=== PATIENT | female | born 1990 | race Caucasian/White ===

== ENCOUNTER 2018-02-07 10:26 | Emergency (ER) | payer MEDICAID, SELFPAY ==
[2018-02-07 10:27] VITALS: BP 160/96; PULSE 77; RESP 16; TEMP 36.9; O2SAT 100; BMI 48.2
--- NOTE | 2018-02-07 10:45 | ED.VISSUMM ---
- ER Visit Summary Date of Service: 02/07/18 Chief Complaint: Abdominal pain History of Present Illness: The patient is a 28 F who states that yesterday she began to have a left upper quadrant left flank pain. Continuous and described as aching. Mild to moderate nature. It has been continuous. She notes urinary frequency but states that is chronic for her. She states that she felt the similar pain when she had a kidney infection when she was . She notes normal bowel movements. Last bowel movement last night. No trauma to the abdomen. No strenuous activity. No fevers. No problems eating. Physical Examination: Afebrile vital signs are stable Gen: Well-nourished well-developed morbidly obese Head: Normocephalic atraumatic Eyes: Perrl EOMI ENT: TMs clear no rhinorrhea moist mucous membranes Neck: Supple no lymphadenopathy no JVD nontender CVS: Regular rate rhythm no murmurs normal S1-S2 Respiratory: No distress clear to auscultation bilaterally chest nontender Abdomen: Soft nontender nondistended normal bowel sounds no masses body habitus precludes me from palpating deeply into the abdomen Back: Nontender Extremity: Nontender no edema Skin: Normal color no rash Neuro: alert orientated ?3 CN II-XII intact normal strength sensation reflexes gait cerebellar Psych: Normal affect normal mood Test Results: Urinalysis and test were obtained. CT abdomen pelvis demonstrates some mild splenomegaly. Otherwise no obvious cause to explain her left upper quadrant pain. Emergency Department Course and Treatment: Patient will be discharged home with supportive care return if worsening follow-up if not improved in 24-48 hours Impression: 1. Left upper quadrant abdominal pain This note was generated with [employer] dictation software. It may contain incorrect words, spelling, and punctuation that were not noted in review of the chart prior to signing ED Disposition - Plan for ED Patient: Disposition: Home or Assisted Living Chief Complaint: Abd Pain Instructions: ED Flank Pain Uncertain Cause Referrals: Cesia Wallis PA [Primary Care Provider] - 1-2 Days if not improving
[2018-02-07 10:56] LABS: Mucous, Urine 0 SEEN /hpf (<or=2+); Red Blood Cells-Urine 0 SEEN /hpf (0-5); White Blood Cells 0 SEEN /hpf (0-5)
[2018-02-07 10:57] LABS: Color, Urine Yellow (Yellow); Glucose, Dipstick Normal (Normal); Ketone-Dipstick Negative (Negative); Leukocyte Esterase-Dipstick Negative /ul (Negative); Nitrite-Dipstick Negative (Negative); Occult Blood-Urine Negative /ul (Negative); Protein-Dipstick Negative (Negative); Specific Gravity, Urine 1.015 (1.002-1.030); Urine Bilirubin Dipstick Negative (Negative); Urine Clarity Clear (Clear); Urine Urobilinogen Normal (Normal)
[2018-02-07 10:58] LABS: Internal QC Validated? YES +Cl - CLEAR BKGD
[2018-02-07 10:59] LABS: Pregnancy, Urine Negative Negative
[2018-02-07 11:03] LABS: Bacteria RARE /hpf (None Seen); Squamous Epithelial Cells - UA 0-5 SEEN /hpf (5-10)
--- NOTE | 2018-02-07 11:17 | CT_ITS ---
STUDY: CT ABDOMEN AND PELVIS WITHOUT CONTRAST REASON FOR EXAM: Female, 28 years old. Left flank/upper quadrant pain. RADIATION DOSAGE (If Supplied By Facility): CTDIvol = ( 23.15 ) mGy, DLP = ( 1214.82 ) mGycm TECHNIQUE: Transaxial images were obtained from the dome of the diaphragm to the symphysis pubis without oral contrast, and without intravenous contrast. Sagittal and coronal images were reconstructed. Individualized dose optimization techniques were used for this CT. COMPARISON: None. FINDINGS: The visualized lung bases are unremarkable. The visualized portions of the heart are within normal limits. There is decreased attenuation of the liver consistent with steatosis. Minor relative hyperdensity along the gallbladder fossa consistent with sparing in the bare area of the liver. There is hepatomegaly, the right lobe measuring 22.5 cm in height. The portal vein diameter is approximately 14.5 mm. Normal gallbladder and extrahepatic biliary system. There is mild splenomegaly, measuring 14.55 x 11.3 x 4.45 cm. Normal pancreas. Normal bilateral adrenal glands. Normal right kidney. Normal left kidney. No hydronephrosis. Normal visualized stomach. Normal small intestine. Normal colon. The appendix is visualized and appears normal. Normal abdominal aorta. Normal inferior vena cava. Normal retroperitoneum. Normal urinary bladder. There is a T-shaped intrauterine device in the endometrial cavity of the normal size, anteverted uterus Normal visualized adnexa. Normal abdominal wall. Normal osseous structures. CT/Abdomen/Pelvis without Cont IMPRESSION: 1. Hepatomegaly with steatosis. 2. Mild splenomegaly. 3. The bowel is unremarkable without signs of obstruction. The appendix is normal. 4. No hydronephrosis. 5. T-shaped IUD in the endometrial cavity of the normal-appearing uterus. Unremarkable adnexa. Electronically Signed: Antolin Rubio MD at 11:48 EDT , Service support ,
[2018-02-07 12:34] VITALS: BP 145/70; PULSE 75; RESP 14; O2SAT 99
== END 2018-02-07 12:35 | disposition home or self-care (01) ==
PROVIDERS: Emergency Provider Emergency Medicine; Family Provider Physician Assistant; PCP Physician Assistant
DX: R10.12 Left upper quadrant pain (principal); R35.0 Frequency of micturition; E66.01 Morbid (severe) obesity due to excess calories; R16.1 Splenomegaly, not elsewhere classified; Z87.448 Personal history of other diseases of urinary system
CPT/HCPCS: 74176; 81001; 81025; 99282

== ENCOUNTER → 2018-04-09 10:34 | Outpatient (CLI) | payer MEDICAID, SELFPAY ==
--- NOTE | 2018-04-09 10:36 | RAD_ITS ---
STUDY: X-RAY - RIGHT HAND REASON FOR EXAM: Bilateral hand pain and numbness. TECHNIQUE: 3 view(s) of the hand. COMPARISON: None. FINDINGS: Normal radiocarpal articulation. Normal distal radioulnar joint. Normal visualized carpal bones. Normal carpal articulations Normal carpometacarpal articulation of the thumb. Normal second through fifth carpometacarpal joints. There is mild deformity of the fifth metacarpal diaphysis suggestive of remote fracture. Normal metacarpophalangeal joint of the thumb. Normal interphalangeal joint of the thumb. Normal proximal and distal phalanges of the thumb. Normal metacarpophalangeal joints of the second through fifth fingers. Normal proximal and distal interphalangeal joints of the second through fifth fingers. Normal phalanges of the second through fifth fingers. The soft tissue structures are unremarkable. RAD/Hand Min 3 Views IMPRESSION: Mild deformity of the fifth metacarpal suggestive of remote fracture. Otherwise, unremarkable x-ray examination of the right hand. Electronically Signed: Prasanna Lambert MD at 9:45 EDT Tel , Service support ,
--- NOTE | 2018-04-09 10:36 | RAD_ITS ---
STUDY: X-RAY - LEFT HAND REASON FOR EXAM: Bilateral hand pain and numbness. TECHNIQUE: 3 view(s) of the hand. COMPARISON: None. FINDINGS: Normal radiocarpal articulation. Normal distal radioulnar joint. Normal visualized carpal bones. Normal carpal articulations Normal carpometacarpal articulation of the thumb. Normal second through fifth carpometacarpal joints. Normal metacarpi. Normal metacarpophalangeal joint of the thumb. Normal interphalangeal joint of the thumb. Normal proximal and distal phalanges of the thumb. Normal metacarpophalangeal joints of the second through fifth fingers. Normal proximal and distal interphalangeal joints of the second through fifth fingers. Normal phalanges of the second through fifth fingers. The soft tissue structures are unremarkable. RAD/Hand Min 3 Views IMPRESSION: Normal x-ray examination of the left hand. Electronically Signed: Prasanna Lambert MD at 14:14 EDT Tel , Service support ,
== END ==
PROVIDERS: Family Provider Physician Assistant; PCP Physician Assistant; Visit Provider Orthopaedic Surgery
DX: M79.641 Pain in right hand (principal); M79.642 Pain in left hand
CPT/HCPCS: 73130

== ENCOUNTER → 2018-07-23 12:14 | Outpatient (CLI) | payer MEDICAID, SELFPAY | PROVIDERS: Family Provider Physician Assistant; PCP Physician Assistant; Visit Provider Obstetrics & Gynecology | DX: Z30.431 Encounter for routine checking of intrauterine contraceptive device (principal) | CPT/HCPCS: 76830; 76856; 93976 ==

== ENCOUNTER 2018-08-01 12:35 | Emergency (ER) | payer MEDICAID, SELFPAY ==
[2018-08-01 12:36] VITALS: BP 161/100; PULSE 74; RESP 18; TEMP 36.4; O2SAT 100; BMI 42.9
[2018-08-01 12:45] VITALS: BP 146/92; RESP 16
--- NOTE | 2018-08-01 13:16 | ED.DCSUM_ITS ---
- ER Visit Summary Date of Service: 08/01/18 Chief Complaint: [] Intermittent left foot pain plantar service for weeks History of Present Illness: The patient is a 28 F [] complains of the above for weeks it is very intermittent nothing triggers it she indicates she began walking of the day and again had recurrence of this pain decide come and have it evaluated. 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 she does not recall any direct injury she has no history of any arthritis problems orthopedic problems and she denies any past history she has been using [id number] meds the pain is intermittent worse when she bears weight Physical Examination: [] Her BMI is 43 she is resting cupping the bed her general medical exam head neck chest abdomen unremarkable the left foot there is normal ankle function with no abnormality or pain she has a nonspecific pain to the plantar surface of her foot that really is hard to localize there is no instability deformity no skin breakdown or signs of infection or trauma strong dorsalis pedis pulse normal sensation cap refill to the toes and the skin is intact and there is no signs of infection or obvious trauma Test Results: [] Emergency Department Course and Treatment: [] X-rays are obtained that are unremarkable per radiology see those reports, explained all the above that her including the concept of an occult injury she has soft flat supportive shoes she can wear she will refer to podiatry continue to take [id number]-[id number] meds for pain try to avoid being on the latter and return for change in symptoms Treatment Plan: [] Disposition: [] Home stable Impression: [] Acute recurrent intermittent left foot pain etiology unclear This note was generated with [employer] dictation software. It may contain incorrect words, spelling, and punctuation that were not noted in review of the chart prior to signing ED Disposition - Plan for ED Patient: Chief Complaint: Lower Extremity Injury Referrals: Cesia Wallis PA [Primary Care Provider] -
--- NOTE | 2018-08-01 14:32 | ED.DEP ---
ED Disposition - Plan for ED Patient: Chief Complaint: Lower Extremity Injury Referrals: Cesia Wallis PA [Primary Care Provider] - Gabriela Loyola DPM [STAFF PHYSICIAN] -
--- NOTE | 2018-08-01 14:33 | ED.DEP ---
ED Disposition - Plan for ED Patient: Chief Complaint: Lower Extremity Injury Instructions: ED Contusion Foot, ED Sprain Foot Referrals: Gabriela Loyola DPM [STAFF PHYSICIAN] - Cesia Wallis PA [Primary Care Provider] -
[2018-08-01 14:46] VITALS: RESP 16
--- NOTE | 2018-08-01 14:46 | ED.RN ---
REVIEWED D/C INSTRUCTIONS, FOLLOW UP CARE, AND S/S THAT WOULD WARRANT A RETURN TO THE ED WITH PT. PT VERBALIZED AN UNDERSTANDING AND DENIES FURTHER QUESTIONS FOR THIS RN. PT SKIN P/W/D, RESP EVEN AND UNLABORED, PT A&O X 3, NO DISTRESS NOTED. PT AMBULATED OUT OF ED, GAIT STEADY.
== END 2018-08-01 14:47 | disposition home or self-care (01) ==
PROVIDERS: Emergency Provider Emergency Medicine; Family Provider Physician Assistant; PCP Physician Assistant
DX: M25.572 Pain in left ankle and joints of left foot (principal)
CPT/HCPCS: 73630; 99282

== ENCOUNTER → 2019-07-08 | Outpatient (CLI) | payer MEDICAID, SELFPAY ==
[2019-07-08 15:39] LABS: Absolute Neutrophil Count 4.3 X10^3/uL (2.0-7.7); Basophil# 0.06 X10^3/uL; Basophil% 0.9 % (0-1); Eosinophil# 0.14 X10^3/uL; Eosinophils% 2.2 % (0-5); Hematocrit 32.5 % (37-47); Hemoglobin 9.4 g/dL (12.0-15.0); Lymphocyte % 23.1 % (19-41); Mean Corp Hgb Conc 28.9 g/dL (32-36); Mean Corpuscular Hgb 20.9 pg (27.0-32.0); Mean Corpuscular Volume 72.4 fL (81-99); Mean Platelet Vol. 9.4 fl (6.2-12.0); Monocyte# 0.44 X10^3/uL; Monocyte% 6.8 % (0-10); NRBC Flagged by Analyzer 0 % (0-5); Neutrophil # 4.32 X10^3/uL (2.7-7.7); Neutrophil % 66.7 % (47-70); Platelet Count 346 K/mm3 (150-450); RBC Distribution Width CV 16.4 % (11.6-14.6); RBC Distribution Width SD 41.9 fl (35.1-43.9); Red Blood Count 4.49 M/mm3 (4.2-5.4); White Blood Count 6.5 K/mm3 (4.4-11.0)
== END | disposition home or self-care (01) ==
LOC: LAB.FUTURE 15:01
PROVIDERS: Family Provider Physician Assistant; PCP Physician Assistant; Referring Provider Physician Assistant; Visit Provider Physician Assistant
DX: D64.9 Anemia, unspecified (principal)
CPT/HCPCS: 36415; 85025

== ENCOUNTER 2019-10-23 21:54 | Emergency (ER) | payer MEDICAID, SELFPAY ==
[2019-10-23 21:54] VITALS: BP 149/119; PULSE 69; RESP 15; TEMP 36.2; O2SAT 98; BMI 41.1
[2019-10-23] MEDS: Clindamycin HCl 150 MG Capsule 300 MG PO (22:14)
--- NOTE | 2019-10-23 22:15 | ED.VIS.DENTA ---
History of Present Illness Chief Complaint: Dental Informant: Patient Onset: Days - 5 Context: Gradual Onset Timing: Continuous Quality: sore Location: left mandib dental extraction sites Current Severity: Moderate Maximum Severity: Moderate Worsened by: eating Relieved by: NSAIDs Associated Symptoms: - - no fever, swelling in jaw/face Narrative: Patient had several teeth extracted both mandibular rows at the beginning of the week, the right side has been improving in the left side has been getting worse with regards to pain. She was going to try to wait until Friday to talk to her dentist but since it is the weekend she came to the ER out of concern for infection. She denies any fevers or systemic symptoms. No discharge or major bleeding. Past Medical History - Allergies and Home Meds Allergies/Adverse Reactions: Allergies Penicillins Allergy (Verified 10/23/19 21:59) Hives Primary Care Physician: Cesia Wallis PA [Primary Care Provider] - Past Medical History: None Lives: With Family Smoking Status: Never smoker Review of Systems General: Denies: Chills, Fever, Sweats ENT: Reports: - - dental pain. Denies: Bilateral ear pain, Rhinorrhea, Sore throat Respiratory: Denies: Dyspnea, Cough Gastrointestinal: Denies: Nausea, Vomiting Physical Exam Vital Signs/Narrative: Vital Signs Temp Pulse Resp BP Pulse Ox 10/23/19 21:54 97.1 F L 69 15 149/119 H 98 Inital Vital Signs reviewed: Yes General: Well nourished, Well developed, - - well-appearing, nad Head: Normocephalic, Atraumatic ENT: Moist mucous membranes, No rhinorrhea Mouth/Throat: - - Right mandibular extraction sites appear benign and nontender with clots in place at extraction site. Left mandibular gingival extraction sites are a little swollen, there is some blood within the clot of the extraction site, it does not necessarily appear like a dry socket, but there is significant tenderness there. No purulent discharge. No abscess. No sublingual edema. No trismus. Neck: Supple, No lymphadenopathy, Nontender, No JVD Neurological: Alert, Oriented x3, Cranial nerves II-XII grossly intact, Normal Strength, Normal Sensation, Normal Gait Psychological: Normal affect, Normal Mood Diagnostic/Tx/Re-eval - Medical Decision Making Infection probably present and early. Allergic to penicillins and started on clindamycin. Advised to follow-up with her dentist as soon as possible. She is comfortable with that plan. ED Disposition - Plan for ED Patient: Disposition: Home or Assisted Living Diagnosis: Dental infection Instructions: Dental Pain Prescriptions: Clindamycin [Cleocin] 300 mg PO 4X/DAY #80 cap Transmission Status: Pending to [facility] [facility] Referrals: Dentist,Your [STAFF PHYSICIAN] - 2 Days
== END 2019-10-23 22:21 | disposition home or self-care (01) ==
LOC: ED 22:20
PROVIDERS: Emergency Provider Emergency Medicine; Family Provider Physician Assistant; PCP Physician Assistant
DX: T81.40XA Infection following a procedure, unspecified, initial encounter (principal)
CPT/HCPCS: 99283

== ENCOUNTER 2020-01-11 16:47 | Emergency (ER) | payer MEDICAID, SELFPAY ==
[2020-01-11 16:49] VITALS: BP 139/103; PULSE 104; RESP 18; TEMP 37.4; O2SAT 97; BMI 44.6
--- NOTE | 2020-01-11 17:03 | ED.VISSUMM ---
- ER Visit Summary Date of Service: 01/11/20 Chief Complaint: [Headache, cough, fever] History of Present Illness: The patient is a 30 F [presents to the emergency department with symptoms that started 3 days ago. Patient states that both her young girls were diagnosed with influenza B last week. Patient started feeling bad 3 days ago. Patient complained of a runny nose initially as well as a headache. She describes a sore throat and a dry cough. She complains of body aches. Patient had some diarrhea yesterday but that seems to have resolved. Patient otherwise has no medical history. She is been using Tylenol but not get much relief from her symptoms.] Physical Examination: [HEENT-PERRLA, EOMI. Cranial nerves II through XII grossly intact. TMs clear. Mucous membranes moist. No adenopathy. Cardiovascular-regular rate and rhythm without murmur or ectopy Lungs-clear to auscultation, chest wall stable without crepitus or subcu emphysema Abdomen-normoactive bowel sounds, soft, nontender, no rebound or rigidity, no peritoneal signs. Neuro nnmi-ydxpak-tnlh and heel wiggins testing within normal limits, negative Romberg, negative for drift, fundi benign. Extremities-intact ?4, normal range of motion, normal pulses, atraumatic] Test Results: [None indicated] Emergency Department Course and Treatment: [Patient was given Toradol 60 mg IM as well as Zofran 4 mg p.o.] Treatment Plan: [I suspect patient has influenza given her recent exposure to family members who both tested positive for influenza B last week. Symptoms consistent with influenza. She is out of the window for Tamiflu and she does not want the Tamiflu. Recommended symptomatic care. She is to follow-up with her primary care physician in 5 to 7 days. Patient advised to return if increasing shortness of breath or condition should worsen anyway.] Disposition: [Discharged home in stable condition] Impression: [Influenza] This note was generated with [employer] dictation software. It may contain incorrect words, spelling, and punctuation that were not noted in review of the chart prior to signing ED Disposition - Plan for ED Patient: Referrals: Cesia Wallis PA [Primary Care Provider] -
--- NOTE | 2020-01-11 17:05 | ED.DEP ---
ED Disposition - Plan for ED Patient: Instructions: INFLUENZA (Adult) Prescriptions: Ibuprofen [Motrin] 800 mg PO TID PRN PRN #20 tab PRN Reason: Fever Transmission Status: Pending to [facility] Ondansetron [Zofran Odt] 4 mg PO Q8H PRN PRN #10 tab PRN Reason: Nausea Transmission Status: Pending to [facility] Referrals: Cesia Wallis PA [Primary Care Provider] - 5-7 Days
[2020-01-11] MEDS: Ketorolac 60 MG/2 ML Vial IM (17:11)
[2020-01-11] MEDS: Ondansetron ODT 4 MG Tablet PO (17:11)
== END 2020-01-11 17:45 | disposition home or self-care (01) ==
LOC: ED 17:16
PROVIDERS: Emergency Provider Emergency Medicine; PCP Physician Assistant
DX: J10.1 Influenza due to other identified influenza virus with other respiratory manifestations (principal)
CPT/HCPCS: 96372; 99283

== ENCOUNTER → 2020-01-13 | Outpatient (CLI) | payer MEDICAID, SELFPAY ==
[2020-01-13 14:36] VITALS: BMI 44.6
== END | disposition home or self-care (01) ==
LOC: LABSPEC 16:15
PROVIDERS: PCP Physician Assistant; Referring Provider Nurse Practitioner Women's Health; Visit Provider Nurse Practitioner Women's Health
DX: R10.2 Pelvic and perineal pain (principal); N92.6 Irregular menstruation, unspecified
CPT/HCPCS: 87070; 87077; 87205

== ENCOUNTER 2020-04-05 16:59 | Emergency (ER) | payer MEDICAID, SELFPAY ==
[2020-01-18 12:47] VITALS: BMI 44.6
[2020-04-05 17:00] VITALS: BP 154/104; PULSE 78; RESP 16; TEMP 36.6; O2SAT 97; BMI 50.2
[2020-04-05 17:09] VITALS: BP 168/98
--- NOTE | 2020-04-05 17:09 | ED.DCSUM_ITS ---
History of Present Illness Chief Complaint: Vag Bleeding Informant: Patient Onset: Days - 3 days Narrative: Patient presents secondary to heavy vaginal bleeding. Her period started 3 days ago. She states is been heavier than normal and passing clots. For the past couple of days she states she is been going through 2 pads an hour. Bleeding is not quite as heavy today. She does have a history of anemia at baseline and called her GYNs office today who told her to come to the emergency room whenever she got off work today. Patient was seen in the office in December to discuss getting a tubal ligation. This is not been scheduled yet secondary to the Covid pandemic. Patient does have ParaGard IUD in place. Past Medical History - Allergies and Home Meds Allergies/Adverse Reactions: Allergies Penicillins Allergy (Verified 04/05/20 17:01) Almita Primary Care Physician: Cesia Wallis PA [Primary Care Provider] - Doctors: Dr. Forte Prior records reviewed: Yes Lives: Spouse/ Significant Other Smoking Status: Never smoker Review of Systems General: Denies: Chills, Fever Eyes: Denies: Visual changes - bilaterally ENT: Denies: Bilateral ear pain Cardiovascular: Denies: Chest pain Respiratory: Denies: Dyspnea, Cough Gastrointestinal: Reports: Abdominal pain. Denies: Nausea, Vomiting, Diarrhea Musculoskeletal: Reports: Back pain Skin: Denies: Rash Neurological: Denies: Headache Hematologic: Denies: Easy bruising, Easy bleeding Allergy: Denies: Uticaria Physical Exam Vital Signs/Narrative: Vital Signs Temp Pulse Resp BP Pulse Ox 04/05/20 17:09 168/98 H 04/05/20 17:00 97.9 F 78 16 154/104 H 97 Inital Vital Signs reviewed: Yes General: Well nourished, Well developed Head: Normocephalic ENT: Moist mucous membranes Neck: Supple Cardiovascular: Regular rate, Regular rhythm Respiratory: No distress, CTA bilaterally Abdomen: Soft, Nontender Extremities: Nontender Skin: Normal color Neurological: Alert, Oriented x3 Psychological: Normal affect Diagnostic/Tx/Re-eval Impressions Transvaginal US 04/05/20 17:09 IMPRESSION: Satisfactory position of the intrauterine device. Normal sonographic appearance of the uterus. Normal sonographic appearance of the bilateral ovaries. Trace free fluid. Electronically Signed: Otilio Augustin, at 18:21 EDT Tel , Service support , 04/05/20 17:09 Transvaginal Non- [US] Stat Laboratory Results 04/05/20 04/05/20 17:16 17:16 WBC 5.7 RBC 4.28 Hgb 13.3 Hct 40.2 MCV 93.9 MCH 31.1 MCHC 33.1 RDW Std Deviation 42.0 RDW Coeff of Pamela 12.2 Plt Count 249 MPV 9.1 Immature Gran % (Auto) 0.200 Neut % (Auto) 60.2 Lymph % (Auto) 30.1 Kidder % (Auto) 6.6 Eos % (Auto) 2.4 Baso % (Auto) 0.5 Absolute Neuts (auto) 3.4 Absolute Lymphs (auto) 1.72 Nucleated RBC % 0 Serum , Qual NEGATIVE - Medical Decision Making Patient was given liter IV fluid. Test results are discussed with her DECAL TRANSFERRER, Dr. Forte. Patient will be given estrogen 1 mg twice daily x5 days, then once daily x5 days. Patient is to be seen in the office in 2 weeks for follow-up. Patient is comfortable with this plan. ED Disposition - Plan for ED Patient: Disposition: Home or Assisted Living Diagnosis: Menorrhagia Instructions: ED Bleeding Menstrual Heavy Prescriptions: Estradiol 1 mg PO BID #15 tab Transmission Status: Pending to [facility] [facility] Referrals: Tami Forte MD [STAFF PHYSICIAN] - 1-2 Weeks
--- NOTE | 2020-04-05 17:09 | US_ITS ---
STUDY: ULTRASOUND OF THE FEMALE PELVIS - COMPLETE REASON FOR EXAM: Female, 30 years old. Bleeding. Intrauterine device. TECHNIQUE: Transvaginal TECHNICAL QUALITY: Adequate. COMPARISON: None. FINDINGS: The uterus is anteverted and is in a midline position. The uterus measures 8.2 x 3.6 x 5.2 cm. There are nabothian cysts noted in the cervix. The endometrium measures 3 mm in thickness, and is hyperechoic there is an intrauterine device in satisfactory position. There is no demonstrated endometrial mass. There is no demonstrated myometrial mass. The right ovary is visualized. The right ovary measures 3.2 x 2.3 x 1.3 cm. There is no right ovarian cyst or ovarian mass. There is no visualized right adnexal mass or complex lesion. There is normal arterial and normal venous vascularity. The left ovary is visualized. The left ovary measures 2.2 x 1.8 x 1.8 cm. There is no left ovarian cyst or ovarian mass. There is no visualized left adnexal mass or complex lesion. There is normal arterial and normal venous vascularity. There is minimal fluid in the cul-de-sac. US/Transvaginal Non- IMPRESSION: Satisfactory position of the intrauterine device. Normal sonographic appearance of the uterus. Normal sonographic appearance of the bilateral ovaries. Trace free fluid. Electronically Signed: Otilio Augustin, at 18:21 EDT Tel , Service support ,
[2020-04-05] MEDS: 0.9% Normal Saline 1,000 ML 1000 ML IV (17:17)
[2020-04-05 17:26] LABS: Absolute Lymphocyte Count 1.72 X10^3/uL (0.83-4.51); Absolute Neutrophil Count 3.4 X10^3/uL (2.0-7.7); Basophil# 0.03 X10^3/uL; Basophil% 0.5 % (0-1); Eosinophil# 0.14 X10^3/uL; Eosinophils% 2.4 % (0-5); Hematocrit 40.2 % (37-47); Hemoglobin 13.3 g/dL (12.0-15.0); Lymphocyte # 1.72 X10^3/ul (4.0); Lymphocyte % 30.1 % (19-41); Mean Corp Hgb Conc 33.1 g/dL (32-36); Mean Corpuscular Hgb 31.1 pg (27.0-32.0); Mean Corpuscular Volume 93.9 fL (81-99); Mean Platelet Vol. 9.1 fl (6.2-12.0); Monocyte# 0.38 X10^3/uL; Monocyte% 6.6 % (0-10); NRBC Flagged by Analyzer 0 % (0-5); Neutrophil # 3.44 X10^3/uL (2.7-7.7); Neutrophil % 60.2 % (47-70); Platelet Count 249 K/mm3 (150-450); RBC Distribution Width CV 12.2 % (11.6-14.6); Red Blood Count 4.28 M/mm3 (4.2-5.4); White Blood Count 5.7 K/mm3 (4.4-11.0)
[2020-04-05 17:41] LABS: Internal QC Validated? YES +Cl - CLEAR BKGD; Pregnancy, Serum, hCG Quali. NEGATIVE Negative
== END 2020-04-05 18:48 | disposition home or self-care (01) ==
LOC: ED 18:38
PROVIDERS: Emergency Provider Emergency Medicine; PCP Physician Assistant
DX: N92.0 Excessive and frequent menstruation with regular cycle (principal); Z88.0 Allergy status to penicillin; Z86.2 Personal history of diseases of the blood and blood-forming organs and certain disorders involving the immune mechanism
CPT/HCPCS: 76830; 84703; 85025; 96360; 99283; J7030

== ENCOUNTER 2020-08-18 22:42 | Emergency (ER) | payer MEDICAID, SELFPAY ==
[2020-08-18 22:43] VITALS: BP 128/73; PULSE 114; RESP 18; TEMP 36.4; O2SAT 98; BMI 43.1
--- NOTE | 2020-08-18 22:50 | RAD_ITS ---
STUDY: X-RAY - PELVIS REASON FOR EXAM: Female, 30 years old. FELL DOWN STEPS. NUMBNESS IN LEGS AND PAIN IN TAILBONE TECHNIQUE: 2 frontal images of the pelvis were obtained. COMPARISON: CT dated 02/07/2018 FINDINGS: There is a non-specific bowel gas pattern. There is an intrauterine device in place in the expected region of the uterus. Normal bilateral iliac wings, sacroiliac joints and visualized sacrum. Normal visualized bilateral superior and inferior pubic rami. Normal pubic symphysis. Normal ischial tuberosities. Normal visualized right femoral head. Normal right acetabulum. Normal right hip joint. Normal visualized left femoral head. Normal left acetabulum. Normal left hip joint. RAD/Pelvis 1 or 2 Views IMPRESSION: No acute osseous injury. Electronically Signed: Yuliana Medley MD at 23:21 EDT Tel , Service support ,
--- NOTE | 2020-08-18 22:51 | ED.VIS.GEN ---
History of Present Illness Chief Complaint: Fall Informant: Patient Narrative: Patient states that she was carrying a load of laundry down the stairs tonight when she missed stepped and fell going down the stairs on her buttocks. She notes pain lower lumbar to the sacral region. She states both legs feel tingling. She is however able to walk though painfully. The patient dates that she did not hit her head and does not have injuries higher up in the back. She is not on any blood thinners. Denies risk of . Past Medical History - Allergies and Home Meds Allergies/Adverse Reactions: Allergies Penicillins Allergy (Verified 04/05/20 17:01) Hives tramadol Adverse Reaction (Verified 08/18/20 22:45) Vomiting Primary Care Physician: Cesia Wallis PA [Primary Care Provider] - Prior records reviewed: Yes Past Medical History: None Surgical History: noncontributory Lives: With Family Smoking Status: Former smoker Drugs: None Review of Systems General: Denies: Chills, Fever, Sweats Eyes: Denies: Visual changes - bilaterally, Diplopia ENT: Denies: Rhinorrhea, Sore throat Cardiovascular: Denies: Chest pain, Palpitations Respiratory: Denies: Dyspnea, Cough, Dyspnea on exertion Gastrointestinal: Denies: Abdominal pain, Nausea, Vomiting, Diarrhea, Melena, Hematochezia Genitourinary: Denies: Dysuria, Hematuria, Frequency Musculoskeletal: Reports: Back pain. Denies: Extremity Pain Skin: Denies: Rash, Wounds Neurological: Reports: Parasthesia. Denies: Headache, Weakness, Numbness Physical Exam Vital Signs/Narrative: Vital Signs Temp Pulse Resp BP Pulse Ox 08/18/20 22:43 97.5 F L 114 H 18 128/73 H 98 Inital Vital Signs reviewed: Yes General: Well nourished, Well developed, Obese, No Acute Distress Head: Normocephalic, Atraumatic Eyes: Perrl, EOMI ENT: Moist mucous membranes, No rhinorrhea Neck: Supple, Nontender Cardiovascular: Regular rate, Regular rhythm, No murmurs Respiratory: No distress, CTA bilaterally, Chest nontender Abdomen: Soft, Nontender, Nondistended, Normal bowel sounds Back: - - Tender to palpation about L5 down through the sacral area. Extremities: No edema Skin: Normal color, No rash Neurological: Alert, Oriented x3, Cranial nerves II-XII grossly intact, Normal Strength, Normal DTR. Negative for: Normal Gait - Antalgic gait. patient reports pins and needlelike sensation of the lower extremities. Psychological: Normal affect, Normal Mood Diagnostic/Tx/Re-eval - Medical Decision Making X-rays of the lumbar spine and pelvis were obtained. ED Disposition - Plan for ED Patient: Diagnosis: Fall (on) (from) other stairs and steps, initial encounter, Sacral contusion, Lumbar contusion Prescriptions: Oxycodone HCl/Acetaminophen [Percocet 5/325] 1 tab PO Q6H PRN PRN 3 Days #12 tab PRN Reason: Pain Prescription Printed Referrals: Cesia Wallis PA [Primary Care Provider] -
--- NOTE | 2020-08-18 22:56 | RAD_ITS ---
STUDY: X-RAY - LUMBAR SPINE REASON FOR EXAM: Female, 30 years old. FELL DOWN STEP. C/O NUMBNESS IN LEGS AND PAIN IN TAILBONE TECHNIQUE: 3 view(s) of the lumbar spine were obtained. COMPARISON: None FINDINGS: Normal lumbar lordosis. There is no substantial scoliosis. There is a normal alignment of the vertebrae. Normal vertebral bodies and endplates. Normal disc space heights. The soft tissue structures are unremarkable. RAD/Lumbar Spine 2 or 3 Views IMPRESSION: Normal x-ray examination of the lumbar spine. Electronically Signed: Wendy Doe MD at 23:52 EDT Tel , Service support ,
[2020-08-18] MEDS: oxyCODONE 5 MG Tablet 10 MG PO (23:22)
[2020-08-19 00:17] VITALS: RESP 15; O2SAT 98
== END 2020-08-19 00:18 | disposition home or self-care (01) ==
PROVIDERS: Emergency Provider Emergency Medicine; PCP Physician Assistant
DX: S30.0XXA Contusion of lower back and pelvis, initial encounter (principal); R20.2 Paresthesia of skin; W10.9XXA Fall (on) (from) unspecified stairs and steps, initial encounter; Y93.E2 Activity, laundry; Y92.9 Unspecified place or not applicable; Y99.9 Unspecified external cause status; E66.9 Obesity, unspecified; Z87.891 Personal history of nicotine dependence
CPT/HCPCS: 72100; 72170; 99283

== ENCOUNTER 2020-12-06 17:31 | Emergency (ER) | payer MEDICAID, SELFPAY ==
[2020-12-06 17:32] VITALS: BP 151/101; PULSE 79; RESP 17; TEMP 36.8; O2SAT 100; BMI 51.7
--- NOTE | 2020-12-06 17:46 | EKG12_ITS ---
Test Reason : CP Blood Pressure : / mmHG Vent. Rate : 075 BPM Atrial Rate : 075 BPM P-R Int : 148 ms QRS Dur : 080 ms QT Int : 360 ms P-R-T Axes : 031 060 014 degrees QTc Int : 402 ms Normal sinus rhythm Normal ECG Confirmed by OSORIO SCHOFIELD, BERTRAND ([id number]), editor house organ SHAHZAD GARLAND ([id number]) on 12/11/2020 11:03:31 AM Referred By: FELIX Confirmed By:PRAVEEN AC MD
--- NOTE | 2020-12-06 17:48 | ED.VIS.CHEST ---
History of Present Illness Chief Complaint: Chest Pain Informant: Patient Onset: Days - 4 Timing: Continuous Quality: Tightness Location: Substernal - Without radiation Current Severity: Moderate Maximum Severity: Moderate Worsened By: Nothing. Not Worsened By: Breathing Relieved By: Nothing Associated Symptoms: Dyspnea, Lightheadedness, Palpitations. Negative for: Vomiting, Diaphoresis, Cough, Fever Narrative: Patient states she has been having constant chest tightness in addition to intermittent palpitations and feels like fluttering that also sometimes makes her lightheaded. She denies any near-syncope or syncope. She is also had swelling in her hands and feet in the last couple days which is unusual for her. She denies any calf pain, history of DVT or PE, recent immobilization, long travel, hospitalization, or surgery. 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 She denies any symptoms of an upper respiratory tract infection. No lateralizing pleuritic sharp pains or other discomfort other than tightness. She denies any illicit drug use and does not drink much in the way of caffeine, and has had no more caffeine than usual lately. Past Medical History - Allergies and Home Meds Allergies/Adverse Reactions: Allergies Penicillins Allergy (Verified 12/06/20 17:34) Hives tramadol Adverse Reaction (Verified 12/06/20 17:34) Vomiting Primary Care Physician: Cesia Wallis PA [Primary Care Provider] - Past Medical History: None Smoking Status: Current every day smoker Drugs: None Review of Systems General: Denies: Chills, Fever, Sweats Eyes: Denies: Visual changes - bilaterally, Diplopia ENT: Denies: Bilateral ear pain, Rhinorrhea, Sore throat Cardiovascular: Reports: Chest pain, Palpitations. Denies: Heart racing Respiratory: Reports: Dyspnea - Mild. Denies: Cough, Dyspnea on exertion Gastrointestinal: Denies: Abdominal pain, Nausea, Vomiting, Diarrhea, Melena, Hematochezia Genitourinary: Denies: Dysuria, Hematuria, Frequency Musculoskeletal: Reports: Swelling. Denies: Back pain, Extremity Pain Skin: Denies: Rash, Wounds Neurological: Denies: Headache, Weakness, Numbness Physical Exam Vital Signs/Narrative: Vital Signs Temp Pulse Resp BP Pulse Ox 12/06/20 17:32 98.2 F 79 17 151/101 H 100 Inital Vital Signs reviewed: Yes General: Well nourished, Well developed, Obese, No Acute Distress - Conversive in full sentences. Head: Normocephalic, Atraumatic Eyes: Perrl, EOMI ENT: Moist mucous membranes, No rhinorrhea Neck: Supple, Nontender, No lymphadenopathy, No JVD Cardiovascular: Regular rate, Regular rhythm, No murmurs. Negative for: Tachycardia Respiratory: No distress, CTA bilaterally, Chest nontender, - - No splinting on deep inspiration. Abdomen: Soft, Nontender, Nondistended, Normal bowel sounds Back: Nontender, Normal Inspection. Negative for: CVA tenderness Extremities: Nontender, No edema - Aside from imprinting in her skin from the tops of her socks. Negative for: Calf Tenderness Skin: Normal color, No rash, No Trauma Neurological: Alert, Oriented x3, Cranial nerves II-XII grossly intact, Normal Strength, Normal Sensation, Normal Gait Psychological: Normal affect, Normal Mood Diagnostic/Tx/Re-eval Chest X-Ray - ED: 1 View, Read by ED Physician, Normal, Heart, Lungs, Mediastinum, No Acute Disease Impressions Chest X-Ray 12/06/20 18:25 IMPRESSION: Normal x-ray examination of the chest. Electronically Signed: Dakota Ashley MD at 18:37 EST , Service support , 12/06/20 18:25 Chest 1 View (Portable) [RAD] Stat Laboratory Results 12/06/20 12/06/20 12/06/20 18:10 18:10 18:10 WBC 5.6 RBC 4.39 Hgb 12.5 Hct 38.4 MCV 87.5 MCH 28.5 MCHC 32.6 RDW Std Deviation 40.6 RDW Coeff of Pamela 12.5 Plt Count 270 MPV 9.5 Immature Gran % (Auto) 0.200 Neut % (Auto) 56.6 Lymph % (Auto) 32.5 [place] % (Auto) 6.8 Eos % (Auto) 3.2 Baso % (Auto) 0.7 Absolute Neuts (auto) 3.2 Absolute Lymphs (auto) 1.81 Nucleated RBC % 0 Sodium 140 Potassium 4.2 Chloride 110 H Carbon Dioxide 26.0 Anion Gap 4 L BUN 12 Creatinine 0.83 Estim Creat Clear Calc 84.81 Est GFR (MDRD) Af Amer 103 Est GFR (MDRD) Non-Af 85 BUN/Creatinine Ratio 14.5 Glucose 88 Calcium 8.8 Troponin I < 0.015 B-Natriuretic Peptide 31.0 - Rhythm Strip Rhythm Strip: Sinus Rhythm Rate: 75 Ectopy: None - EKG Initial EKG Interpretation: Sinus Rhythm, No Acute Injury Pattern - Normal EKG. Normal axis. - Medical Decision Making Work-up is negative/normal. Patient was given an albuterol treatment to see if that helped and it did not do anything but she is comfortable. I offered other treatments but she is comfortable going home and will follow up with her doctor. Throughout her visit, although I did not review 100% of the telemetry data, I did not see any events, ectopy, dysrhythmias. Patient said that occasionally she looked back and felt an occasional symptom/flutter and thought she saw an abnormal beat on her rhythm, possibly indicating a PVC. Her tightness is mild and she is able to get around without any hypoxia or other significant symptoms. I do not think she is having angina. I do not think she has a pulmonary embolus or needs further work-up emergently. She is comfortable following up with cardiology for evaluation of a possible event or Holter monitor if her symptoms persist. We discussed reasons to return she is okay with that plan. ED Disposition - Plan for ED Patient: Disposition: Home or Assisted Living Diagnosis: Chest pain, unspecified, Palpitations Instructions: ED Chest Pain, Uncertain Cause, ED Palpitations Referrals: Cesia Wallis PA [Primary Care Provider] - Guerrero Corral MD [STAFF PHYSICIAN] - 3-5 Days if not improving
[2020-12-06 18:21] LABS: Absolute Lymphocyte Count 1.81 X10^3/uL (0.83-4.51); Absolute Neutrophil Count 3.2 X10^3/uL (2.0-7.7); Basophil# 0.04 X10^3/uL; Basophil% 0.7 % (0-1); Eosinophil# 0.18 X10^3/uL; Eosinophils% 3.2 % (0-5); Hematocrit 38.4 % (37-47); Hemoglobin 12.5 g/dL (12.0-15.0); Lymphocyte # 1.81 X10^3/ul (4.0); Lymphocyte % 32.5 % (19-41); Mean Corp Hgb Conc 32.6 g/dL (32-36); Mean Corpuscular Hgb 28.5 pg (27.0-32.0); Mean Corpuscular Volume 87.5 fL (81-99); Mean Platelet Vol. 9.5 fl (6.2-12.0); Monocyte# 0.38 X10^3/uL; Monocyte% 6.8 % (0-10); NRBC Flagged by Analyzer 0 % (0-5); Neutrophil # 3.15 X10^3/uL (2.7-7.7); Neutrophil % 56.6 % (47-70); Platelet Count 270 K/mm3 (150-450); RBC Distribution Width CV 12.5 % (11.6-14.6); RBC Distribution Width SD 40.6 fl (35.1-43.9); Red Blood Count 4.39 M/mm3 (4.2-5.4); White Blood Count 5.6 K/mm3 (4.4-11.0)
--- NOTE | 2020-12-06 18:25 | RAD_ITS ---
STUDY: X-RAY CHEST REASON FOR EXAM: Female, 30 years old. INTERMITTENT STERNAL CHEST PAIN X4 DAYS, WORSE TODAY TECHNIQUE: Single AP portable view of the chest. COMPARISON: None. FINDINGS: The lungs are clear and expanded. There is no demonstrated pleural abnormality. Normal size heart. Normal mediastinum and reinier. Normal visualized pulmonary arteries. Normal visualized aortic arch and descending thoracic aorta. Normal visualized thoracic spine. Normal visualized ribs, clavicles, and shoulders. There is no demonstrated abnormality of the visualized soft tissue structures of the upper abdomen. RAD/Chest 1 View (Portable) IMPRESSION: Normal x-ray examination of the chest. Electronically Signed: Dakota Ashley MD at 18:37 EST , Service support ,
[2020-12-06 18:42] LABS: Anion Gap 4 (5-15); BUN 12 mg/dL (7-18); BUN/Creat Ratio 14.5 RATIO (10-20); Calcium,Total 8.8 mg/dL (8.5-10.1); Chloride 110 mmol/L (98-107); Creatinine, Serum 0.83 mg/dL (0.55-1.02); EST Glomerular Filtration Rate 85 mL/min (>60); Est Glom Filt Rate - Afr Amer 103 mL/min (>60); Estimated Creatinine Clearance 84.81 ml/min; Glucose 88 mg/dL (74-106); Potassium 4.2 mmol/L (3.5-5.1); Sodium Level 140 mmol/L (136-145)
[2020-12-06 19:06] VITALS: BP 146/86; PULSE 78; RESP 20; O2SAT 100
[2020-12-06 19:29] VITALS: PULSE 71; RESP 18
[2020-12-06] MEDS: Albuterol 2.5 MG/3 ML VIAL.NEB. INHALATION (19:29)
[2020-12-06 19:49] VITALS: BP 139/89; PULSE 85; RESP 16; O2SAT 98
[2020-12-06 20:30] VITALS: BP 134/79; PULSE 87; RESP 20; O2SAT 99
== END 2020-12-06 20:31 | disposition home or self-care (01) ==
PROVIDERS: Emergency Provider Emergency Medicine; PCP Physician Assistant
DX: R07.9 Chest pain, unspecified (principal); R00.2 Palpitations; R06.00 Dyspnea, unspecified; R42 Dizziness and giddiness; M79.89 Other specified soft tissue disorders; E66.9 Obesity, unspecified; F17.200 Nicotine dependence, unspecified, uncomplicated
CPT/HCPCS: 71045; 80048; 83880; 84484; 85025; 93005; 94640; 99283; A4216

== ENCOUNTER 2021-02-16 22:37 | Emergency (ER) | payer MEDICAID, SELFPAY ==
[2021-02-16 22:37] VITALS: BP 146/99; PULSE 93; RESP 16; TEMP 36.7; O2SAT 99; BMI 48.0
[2021-02-16 22:39] VITALS: BP 146/99; PULSE 93; RESP 16; TEMP 36.7; O2SAT 99
--- NOTE | 2021-02-16 23:03 | RAD_ITS ---
HISTORY: cough, chest pain EXAM: XR Chest 1 View: COMPARISON: December 06, 2020 FINDINGS: # of images incl. paperwork: 1 Lungs are clear. Heart is not enlarged. No acute osseous pathology perceived. Pulmonary vascularity is distinct. No effusions. RAD/Chest 1 View (Portable) IMPRESSION: Normal. at 2341 Reported and signed by: Vivek Beltre MD Electronically Signed: Vivek Beltre MD at 23:40 EDT Tel , Service support ,
--- NOTE | 2021-02-16 23:04 | ED.VIS.URI ---
History of Present Illness Chief Complaint: Cough Informant: Patient Onset: Days - 3 Context: Gradual Onset Timing: Continuous Quality: Productive of some green phlegm occasionally Location: Mid chest Current Severity: Moderate Maximum Severity: Moderate Worsened by: - - Coughing Relieved by: - - Nothing Associated Symptoms: Shortness of Breath - Only when coughing/bronchospasm, Chest Pain - Mostly with coughing, feels like bronchitis with burning in her mid chest and soreness in her chest muscles, Productive Cough. Negative for: Nasal Congestion, Headache, Myalgias, Vomiting, Diarrhea, Hemoptysis Narrative: Patient states she had bronchitis in the past and this feels like it. She had an inhaler but it and she threw it out and does not have anything to treat it with right now. She presents during the pandemic although it has been trending down recently. She denies any known contacts with COVID-19 that she knows of, she has not had it in the last year that she knows of, nor has she been vaccinated. She denies any fevers or chills. No loss of taste or smell. No leg pain or swelling or history of DVT or PE. No recent hospitalization, surgery, travel out of the area. No GI symptoms or abdominal pain. Past Medical History - Allergies and Home Meds Allergies/Adverse Reactions: Allergies Penicillins Allergy (Verified 02/16/21 22:39) Hives tramadol Adverse Reaction (Verified 02/16/21 22:39) Vomiting Primary Care Physician: Cesia Wallis PA [Primary Care Provider] - Past Medical History: None Smoking Status: Current every day smoker Review of Systems General: Denies: Chills, Fever, Sweats Eyes: Denies: Visual changes - bilaterally, Diplopia ENT: Reports: - - Hoarseness of voice. Denies: Bilateral ear pain, Rhinorrhea, Sore throat Cardiovascular: Reports: Chest pain. Denies: Palpitations Respiratory: Reports: Dyspnea - With bronchospasm, Cough, Sputum. Denies: Dyspnea on exertion, Orthopnea, Paroxysmal nocturnal dyspnea Gastrointestinal: Denies: Abdominal pain, Nausea, Vomiting, Diarrhea, Melena, Hematochezia Genitourinary: Denies: Dysuria, Hematuria, Frequency Musculoskeletal: Denies: Back pain, Swelling, Extremity Pain Skin: Denies: Rash, Wounds Neurological: Denies: Headache, Weakness, Numbness Physical Exam Vital Signs/Narrative: Vital Signs Temp Pulse Resp BP Pulse Ox 02/16/21 22:37 98.1 F 93 16 146/99 H 99 Inital Vital Signs reviewed: Yes General: Well nourished, Well developed, Obese, - - Well-appearing no acute distress, conversive in full sentences. Occasional coughing. Head: Normocephalic, Atraumatic Eyes: Perrl, EOMI Nose: Normal Inspection, No Rhinorrhea. Negative for: Purulent Drainage Mouth/Throat: Normal Inspection, No Posterior Erythema, Airway Patent, - - Mildly hoarse. No stridor. Neck: Supple, Nontender, No Lymphadenopathy, No Meningismus Cardiovascular: Regular rate, Regular rhythm, No murmurs. Negative for: Tachycardia Respiratory: No distress, CTA bilaterally, Chest nontender Abdomen: Soft, Nontender, Nondistended, Normal bowel sounds Back: Nontender, Normal Inspection Extremities: Nontender, No edema. Negative for: Calf Tenderness Skin: Normal color, No rash, No Trauma Neurological: Alert, Oriented x3, Cranial nerves II-XII grossly intact, Normal Strength, Normal Sensation Psychological: Normal affect, Normal Mood Diagnostic/Tx/Re-eval Chest X-Ray - ED: 1 View, Read by ED Physician, No Acute Disease, No Infiltrates Clinical Impression(s) from Imaging Studies Chest X-Ray 02/16/21 23:03 IMPRESSION: Normal. at 2341 Reported and signed by: Vivek Beltre MD Electronically Signed: Vivek Beltre MD at 23:40 EDT Tel , Service support , - Medical Decision Making Rapid Covid returned negative in addition to chest x-ray. She was given some antitussive, and albuterol inhaler prescription, and given the higher possibility of a false negative rapid Covid, an outpatient PCR was sent and she was advised to quarantine until it returns for the next couple days. She is comfortable with that plan, however I suspect she probably does have a viral or allergic syndrome and not Covid. I do not think antibiotics are indicated at this time and she is comfortable with that. ED Disposition - Plan for ED Patient: Disposition: Home or Assisted Living Diagnosis: Acute bronchitis with bronchospasm Instructions: ED Bronchitis, No Antibiotic (Adult) Prescriptions: Albuterol Inhaler [Ventolin Hfa] 1 - 2 puff INHALATION Q4H PRN PRN #1 inhaler PRN Reason: Wheezing Prescription Printed Referrals: Cesia Wallis PA [Primary Care Provider] - 1 Week if not improving
[2021-02-17] MEDS: guaiFENesin Dm 10 ML UDC PO (00:50)
[2021-02-17 00:54] VITALS: BP 135/71; PULSE 90; RESP 18; TEMP 36.6; O2SAT 97
== END 2021-02-17 00:55 | disposition home or self-care (01) ==
PROVIDERS: Emergency Provider Emergency Medicine; PCP Physician Assistant
DX: J20.9 Acute bronchitis, unspecified (principal); Z20.822 Contact with and (suspected) exposure to COVID-19; E66.9 Obesity, unspecified; F17.200 Nicotine dependence, unspecified, uncomplicated
CPT/HCPCS: 71045; 87426; 87635; 99283; U0002

== ENCOUNTER → 2021-03-08 12:12 | Outpatient (CLI) | payer MEDICAID, SELFPAY ==
[2021-02-16 22:37] VITALS: BMI 48.0
[2021-03-08 13:58] LABS: Amphetamine Urine VISTA NEGATIVE (<1000 ng/mL); Barbiturate Urine VISTA NEGATIVE (< 200 ng/mL); Benzodiazepine Urine VISTA NEGATIVE (< 200 ng/mL); Cocaine Urine VISTA NEGATIVE (< 300 ng/mL); Ecstacy Urine VISTA NEGATIVE (< 500 ng/mL); Methadone Urine VISTA NEGATIVE (< 300 ng/mL); PCP Urine VISTA NEGATIVE (< 25 ng/mL); THC Urine VISTA NEGATIVE (< 50 ng/mL); Vista UDS pH Range 5
[2021-03-15 16:21] LABS: Cotinine Screen Blood <1.0 ng/mL (.); Nicotine Blood <1.0 ng/mL (.)
== END ==
PROVIDERS: PCP Physician Assistant
DX: E66.9 Obesity, unspecified (principal); Z68.43 Body mass index [BMI] 50.0-59.9, adult; Z02.83 Encounter for blood-alcohol and blood-drug test; Z13.39 Encounter for screening examination for other mental health and behavioral disorders
CPT/HCPCS: 36415; 80307; 80323

== ENCOUNTER → 2021-06-22 12:25 | Outpatient (CLI) | payer MEDICAID, SELFPAY ==
[2021-06-22 11:30] VITALS: BMI 48.0
[2021-06-22 14:24] LABS: HIV - WCH Non-Reactive (Nonreactive); Syphilis Antibodies Non-reactive
[2021-06-22 18:01] LABS: Chlamydia Trachomatis by PCR Negative (Negative); Neisserai gonorrhoeae by PCR Negative (Negative); Probe Check PASS; Sample Adequacy Control PASS; Specimen Processing Control PASS
[2021-06-25 20:07] LABS: HCV Quant. RNA PCR HCV Not Detected IU/mL (.); HEPATITIS B SURFACE AG Negative (Negative); Hepatitis A IgM Antibody Negative (Negative); Hepatitis B Core AB IgM Negative (Negative)
[2021-06-25 21:02] LABS: Hep C Antibodies <0.1 s/co ratio (0.0-0.9)
== END ==
PROVIDERS: PCP Physician Assistant; Referring Provider Obstetrics & Gynecology; Visit Provider Obstetrics & Gynecology
DX: A64 Unspecified sexually transmitted disease (principal)
CPT/HCPCS: 36415; 80074; 86703; 86780; 87491; 87522; 87591

== ENCOUNTER 2021-07-02 17:21 | Emergency (ER) | payer MEDICAID, SELFPAY ==
[2021-06-22 11:30] VITALS: BMI 48.0
[2021-07-02 17:22] VITALS: BP 118/77; PULSE 88; RESP 14; TEMP 37.1; O2SAT 98; BMI 43.6
--- NOTE | 2021-07-02 18:55 | RAD_ITS ---
STUDY: X-RAY - RIGHT ANKLE REASON FOR EXAM: Female, 31 years old. INJURY -- WAITING ROOM TECHNIQUE: 3 view(s) of the ankle. COMPARISON: None. FINDINGS: Normal visualized distal tibia and fibula. Normal medial malleolus. Moderate-sized viviana are calcaneal spur noted. Normal tibiotalar articulation and ankle mortise. Normal visualized talus and calcaneus. The visualized subtalar, talonavicular, calcaneocuboid and tarsal articulations are normal. An acute avulsion fractures present at the undersurface of the lateral malleolus with minimal cortical offset is seen on image #1. Mild to moderate soft tissue swelling is present over the lateral malleolus. RAD/Ankle min 3 Views IMPRESSION: 1. Acute avulsion fracture of the undersurface of the lateral malleolus and overlying soft tissue swelling. Electronically Signed: Thomas Santa MD at 19:52 EDT , Service support ,
--- NOTE | 2021-07-02 19:42 | ED.VIS.LOWEX ---
HPI History of Present Illness Chief Complaint: Lower Extremity Injury Detail of Chief Complaint: Injured right ankle. Informant: patient Occured/Mechanism Mechanism/Context: Yes injury Onset/Context/Timing Onset: Today Context: Sudden Onset Timing: Continuous Quality of Pain: Sharp Current Severity: Mild Maximum Severity: Mild Narrative Narrative: 31-year-old female no seen past medical history. Prior gastric bypass. Twisted her right ankle today walking. Denies any other injuries. Prior similar symptoms: No Recent Illness/Hospitalization: No PFSH PFSH Medical History Carpal tunnel syndrome Home Medications calcium carbonate 200 mg calcium (500 mg) chewable tablet 200 mg PO BID 06/22/21 [History Last Taken Unknown] cholecalciferol (vitamin D3) 50 mcg (2,000 unit) capsule 50 mcg PO DAILY 06/22/21 [History Last Taken Unknown] copper 380 square mm intrauterine device 1 device INTRAUTERINE ONCE 06/22/21 [History Last Taken Unknown] cyanocobalamin (vitamin B-12) 1,000 mcg capsule 1,000 mcg PO DAILY 06/22/21 [History Last Taken Unknown] omeprazole 20 mg capsule,delayed release 20 mg PO DAILY 06/22/21 [History Last Taken Unknown] ondansetron HCl 4 mg tablet 4 mg PO Q8H 06/22/21 [History Last Taken Unknown] pediatric multivitamin 1 tab PO DAILY 06/22/21 [History Last Taken Unknown] ursodiol 300 mg capsule 300 mg PO BID 06/22/21 [History Last Taken Unknown] Allergy/AdvReac Type Severity Reaction Status Date / Time Penicillins Allergy Hives Verified 07/02/21 17:22 tramadol AdvReac Vomiting Verified 07/02/21 17:22 Surgical History History of weight loss surgery Social History adopted: No household members: family housing: house number of children: 3 sexually active: Yes Smoking Status: Former smoker quit date: 11/24/13 pack-years: 12 alcohol intake: never substance use type: does not use caffeine: Yes what type of physical activity do you participate in: walking seatbelt use: always do you feel safe at home: Yes 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 Review of Systems ROS Unobtainable: Denies due to encephalopathy Constitutional Constitutional ED: Denies fever(s) Eyes Eyes: Denies change in vision ENT ENT ED: Denies ear pain or sore throat Cardiovascular Cardiovascular: Denies chest pain Respiratory/Chest Respiratory/Chest: Denies dyspnea Gastrointestinal Gastrointestinal: Denies abdominal pain, nausea or vomiting Genitourinary Genitourinary ED: Denies dysuria Musculoskeletal Musculoskeletal: Denies myalgias Integumentary Denies rash Neurologic Neurologic: Denies headache(s) Psychiatric Psychiatric: Denies depression Endocrine Endocrinology: Denies polyuria Hematologic/Lymphatic Hematologic/Lymphatic: Denies easy bruising Allergic/Immunologic Allergic/Immunologic ED: Denies urticaria EXAM Physical Exam Narrative Exam Narrative: 31-year-old no acute distress. Exam normal except right knee nontender nonswollen. Right ankle lateral malleolus tender swollen. Medial malleolus nontender nonswollen. Dorsi plantarflexion intact. Achilles tendon intact. Foot nontender. Able to wiggle her toes. Normal touch sensation. Exam consistent with an ankle sprain. Const Vital Signs: 07/02/21 17:22 Temperature 98.8 F Temperature Source Temporal Pulse Rate 88 Respiratory Rate 14 Blood Pressure 118/77 Blood Pressure Mean 90 Pulse Ox 98 Oxygen Delivery Method Room Air Positive well nourished and well developed; Negative for unkempt General Appearance ED: well developed and NAD; Negative for unkempt HEENT Reports moist mucous membranes normocephalic and atraumatic Eyes PERRL Neck full ROM and supple Thyroid: Negative for tender Chest Wall inspection of chest normal and palpation of chest normal Resp normal respiratory effort, no retractions and clear to auscultation bilaterally Auscultation: Negative for rales, rhonchi or wheezes Cardio regular rate, regular rhythm, S1 normal heart sound, S2 normal heart sound and no murmurs GI non-tender, non-distended and no masses Auscultation: normoactive bowel sounds Palpation: soft; Negative for tender or guarding Back/Spine no CVA tenderness General Back: Negative for CVA tenderness Cervical Spine: Negative for cervical spine tenderness Thoracic Spine / Upper Back: Negative for thoracic spinal tenderness Lumbar Spine / Lower Back: Negative for lumbar spinal tenderness Extremity normal to inspection Extremity Narrative: Tenderness swelling right lateral malleolus. Neuro oriented x3 Sensorium / Orientation: alert, oriented to person, oriented to place and oriented to time; Negative for orientation impaired Motor Exam: strength 5/5 throughout Psych mental status grossly normal Appearance: Negative for unkempt Skin Lesions: no lesions Rashes: no rashes MDM MDM MDM Narrative Medical decision making narrative: History, exam and x-ray are consistent with a right ankle sprain. Aircast and crutches discharged home. Radiography Diagnostic Testing: Right ankle x-ray 3 views soft tissue swelling no fracture no dislocation. Interpreted by myself. Discharge Plan Triage Chief Complaint: Lower Extremity Injury ED Provider: Deepak De La Garza Dx/Rx/DC Orders Clinical Impression: Ankle sprain Instructions: ED Ankle Sprain (Adult) Prescriptions: No Action Flintstones Multivitamin Tablet,Chewable 1 tab PO DAILY RF: 0 calcium carbonate [Tums] 200 mg calcium (500 mg) tablet,chewable 200 mg PO BID RF: 0 cyanocobalamin (vitamin B-12) 1,000 mcg capsule 1,000 mcg PO DAILY RF: 0 ondansetron HCl [Zofran] 4 mg tablet 4 mg PO Q8H RF: 0 ursodiol 300 mg capsule 300 mg PO BID RF: 0 omeprazole 20 mg capsule,delayed release(DR/EC) 20 mg PO DAILY RF: 0 cholecalciferol (vitamin D3) 50 mcg (2,000 unit) capsule 50 mcg PO DAILY RF: 0 ParaGard T 380A 380 square mm intrauterine device 1 device intrauterine ONCE RF: 0 Primary Care Provider: Cesia Wallis Referrals: Cesia Wallis, SARAH [Primary Care Provider] - 1 Week if not improving Activity Restrictions/Additional Instructions: Ice and elevate your ankle to decrease pain and swelling. Tylenol for pain. Aircast and crutches to ambulate. Start nonweightbearing then touchdown and increase as tolerated. Follow-up if not improving. Disposition Disposition: Home, Self Care
== END 2021-07-02 20:47 | disposition home or self-care (01) ==
PROVIDERS: Emergency Provider Emergency Medicine; PCP Physician Assistant
DX: S93.401A Sprain of unspecified ligament of right ankle, initial encounter (principal); W50.2XXA Accidental twist by another person, initial encounter; Y93.01 Activity, walking, marching and hiking; Y92.9 Unspecified place or not applicable; Y99.9 Unspecified external cause status; Z79.899 Other long term (current) drug therapy; Z87.891 Personal history of nicotine dependence; Z98.84 Bariatric surgery status
CPT/HCPCS: 73610; 99284

== ENCOUNTER → 2021-07-03 11:47 | Outpatient (CLI) | payer MEDICAID, SELFPAY ==
[2021-06-22 11:30] VITALS: BMI 48.0
[2021-07-02 17:22] VITALS: BMI 43.6
--- NOTE | 2021-07-03 11:50 | US_ITS ---
STUDY: THYROID ULTRASOUND REASON FOR EXAM: Female, 31 years old. Palpably enlarged thyroid TECHNIQUE: Ultrasound evaluation of the thyroid was performed with real-time and static cheatham-scale imaging. COMPARISON: None. FINDINGS: RIGHT LOBE: The right lobe of the thyroid gland measures 3.9 x 1.6 x 1.1 cm. There is a homogeneous echotexture. There are no demonstrated solid, cystic or complex lesions. LEFT LOBE: The left lobe of the thyroid gland measures 3.9 x 1.5 x 1.1 cm. There is a homogeneous echotexture. There are no demonstrated solid, cystic or complex lesions. ISTHMUS: The isthmus measures 2.1 mm. The regional lymph nodes are normal. Inferior to the left thyroid lobe is a nonspecific echogenic structure, likely a small lymph node measuring 0.9 x 0.6 x 0.4 cm. US/Thyroid IMPRESSION: Sonographically normal thyroid Electronically Signed: Antolin Echeverria MD at 16:10 EDT , Service support ,
== END ==
PROVIDERS: PCP Physician Assistant; Referring Provider Obstetrics & Gynecology; Visit Provider Obstetrics & Gynecology
DX: E01.0 Iodine-deficiency related diffuse (endemic) goiter (principal)
CPT/HCPCS: 76536

== ENCOUNTER 2021-07-24 06:56 | Day surgery (SDC) | payer MEDICAID, SELFPAY ==
[2021-06-22 11:30] VITALS: BMI 48.0
[2021-07-23 17:04] LABS: Absolute Lymphocyte Count 1.68 X10^3/uL (0.83-4.51); Absolute Neutrophil Count 2.7 X10^3/uL (2.0-7.7); Basophil# 0.03 X10^3/uL; Basophil% 0.6 % (0-1); Hematocrit 42.2 % (37-47); Hemoglobin 13.4 g/dL (12.0-15.0); Lymphocyte # 1.68 X10^3/ul (0.83-4.51); Lymphocyte % 33.4 % (19-41); Mean Corp Hgb Conc 31.8 g/dL (32-36); Mean Corpuscular Volume 88.1 fL (81-99); Mean Platelet Vol. 10.5 fl (6.2-12.0); Monocyte# 0.47 X10^3/uL; Monocyte% 9.3 % (0-10); NRBC Flagged by Analyzer 0 % (0-5); Neutrophil # 2.74 X10^3/uL (2.7-7.7); Neutrophil % 54.5 % (47-70); Platelet Count 231 K/mm3 (150-450); RBC Distribution Width CV 14.7 % (11.6-14.6); RBC Distribution Width SD 48.1 fl (35.1-43.9); Red Blood Count 4.79 M/mm3 (4.2-5.4)
[2021-07-24] VITALS (11 sets, daily range): BP systolic 110–140; BP diastolic 57–95; PULSE 55–80; RESP 16–18; TEMP 35.8–36.6; O2SAT 95–100; BMI 42.3
--- NOTE | 2021-07-24 02:38 | HP.PCM_ITS ---
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 Is patient in pain?: No Allergies Penicillins Allergy (Verified 02/16/21 22:39) Hives tramadol Adverse Reaction (Verified 02/16/21 22:39) Vomiting Medications calcium carbonate 200 mg calcium (500 mg) chewable tablet 200 mg PO BID 06/22/21 [History Confirmed 06/22/21] cholecalciferol (vitamin D3) 50 mcg (2,000 unit) capsule 50 mcg PO DAILY 06/22/21 [History Confirmed 06/22/21] copper 380 square mm intrauterine device 1 device INTRAUTERINE ONCE 06/22/21 [History Confirmed 06/22/21] cyanocobalamin (vitamin B-12) 1,000 mcg capsule 1,000 mcg PO DAILY 06/22/21 [History Confirmed 06/22/21] omeprazole 20 mg capsule,delayed release 20 mg PO DAILY 06/22/21 [History Confirmed 06/22/21] ondansetron HCl 4 mg tablet 4 mg PO Q8H 06/22/21 [History Confirmed 06/22/21] pediatric multivitamin 1 tab PO DAILY 06/22/21 [History Confirmed 06/22/21] ursodiol 300 mg capsule 300 mg PO BID 06/22/21 [History Confirmed 06/22/21] Is last menstrual period known: No Post menopausal: No Patient : No : No [facility] Medical History Carpal tunnel syndrome Surgical History History of weight loss surgery Social History (Updated 06/22/21 @ 11:30 by Megan Portillo) adopted: No household members: family housing: house number of children: 3 sexually active: Yes Smoking Status: Current every day smoker alcohol intake: never substance use type: does not use caffeine: Yes what type of physical activity do you participate in: walking seatbelt use: always do you feel safe at home: Yes 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 She was 1 to have this done last year and then it was put on hold due to Covid. She recently had a laparoscopic gastric sleeve procedure. She has lost 40 pounds lifestyle changes in the surgery. She has also had heavy prolonged menses the last few cycles. She will bleed anywhere from 7 to 20 days sometimes heavy. Follow lab work was recently done when she had surgery several weeks ago. She denies any anemia or thyroid abnormalities with that but did not have a thyroid ultrasound. Female Reproductive History Menopausal Symptoms: No night sweats Pregancy History 3 Elective abortions Hx Para 3 Spontaneous abortions Hx # Term Pregnancies Ectopic pregnancies Hx # Pregnancies Multiple births # of living children Past Pregnancies Del. Date Name GA/Weeks Outcome Route Bth Weight Infant Gen Labor Lgth Anesthesia Del Locatn Provider FOB Unknown 2007 Sharath live - full term Male [place] Unknown 2010 Jenni live - full term Female [place] Unknown 2015 Shelbi live - full term Female [place] ROS Const Constitutional: Denies fatigue or night sweats ENT ENT: Reports system reviewed and no additional complaints, except as documented Cardio Card: Denies chest pain Resp Resp: Denies cough or dyspnea GI GI: Reports as per HPI; Denies abdominal pain, constipation, nausea or vomiting : Denies nipple discharge, urinary frequency, urinary incontinence, urinary hesitancy, urinary urgency, vaginal discharge, vaginal dryness, vaginal odor or vaginal pruritus Musc Musc: Denies arthralgias, back pain or muscle weakness Skin Skin/Breast: Denies alopecia, change in hair, dry skin, breast mass, breast pain, breast skin changes or nipple discharge Neuro Neuro: Reports system reviewed and no additional complaints, except as documented Psych Psych: Reports system reviewed and no additional complaints, except as documented Endo Endo: Denies cold intolerance, excessive sweating, heat intolerance or polydipsia Teddy/Lymph Hematologic/Lymphatic: Denies easy bleeding, Denies easy bruising and Denies lymphadenopathy Exam Const General: cooperative, healthy appearing, comfortable, no acute distress and well developed Orientation: alert HENCT Head: normal to inspection and normocephalic Ears: hearing grossly normal bilaterally and external ears normal Nose: external nose normal and nares normal Face and sinus: normal facial exam Neck Neck: normal visual inspection and no lymphadenopathy Thyroid: asymmetrical Chest Chest palpation & inspection: normal inspection of the chest Resp Effort & Inspection: normal respiratory effort Auscultation: clear to auscultation bilaterally Cardio Rate: regular rate Rhythm: regular rhythm Heart Sounds: S1 normal and S2 normal GI Inspection: normal to inspection and non-distended Palpation: soft and no hepatosplenomegaly Musc Other: gross motor intact no deficits, full bilateral strength Skin General: no rashes or lesions noted Neuro General: patient alert, patient awake, moves all extremities and no focal motor deficits Motor: muscle tone normal throughout Extrem General: normal to inspection and no pedal edema Psych Appearance: grossly normal Mental Status: mental status grossly normal Affect: normal affect Speech and Movement: speech and movement normal Coding Level of Care Code Off vis,est,level 4 Diagnoses Abnormal uterine bleeding N93.9 Thyromegaly E01.0 Sterilization Z30.2 Assessment and Plan Assessment and Plan (1) Abnormal uterine bleeding: Status: Acute Comment: d and c hysteroscopy Plan - Dr. Tami Forte MD: Problem list updated and treatment plans were reviewed with the patient and relevant educational handouts given. See problem list details for specific plan information. (2) Thyromegaly: Status: Acute Comment: nl labs per patient, us ordered (3) Sterilization: Status: Acute Comment: laparoscopic bilateral salpingectomy Plan Details Other Orders: Orders: HIV - [facility] Today A64 Syphilis Antibodies Today A64 CT/NG [facility] BY PCR Today A64 Hepatitis Panel Acute Today A64 Hepatitis C,RNA PCR Viral Load Today A64 UPDATE- I have seen the patient and performed any clinically relevant updates to the history and physical exam. Tami Forte MD
[2021-07-24 07:36] LABS: Internal QC Validated? YES +Cl - CLEAR BKGD; Pregnancy, Urine Negative Negative
[2021-07-24] MEDS: Lactated Ringers 1,000 ML 100 ML IV ×2 (07:42→09:20)
--- NOTE | 2021-07-24 08:16 | OP.PCM_ITS ---
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 Bladder was drained of clear urine and SCDs were on preoperatively. IUD removed without complication. Uterus was sounded and a uterine manipulator was placed after dilating. Attention was then paid to the abdominal portion of the procedure and the umbilicus was elevated with towel clamps and injected with Marcaine and after a 5 mm incision was made and the Veress needle was entered into the abdomen confirmed to be intra-abdominal with a low opening pressure of less than 5 mmHg. Abdomen was insufflated with CO2 gas and a 5 mm optical trocar was placed under direct visualization. A 5 mm port suprapubically was placed under direct visualization. Uterus was well visualized and bilateral fallopian tubes identified and bilateral tubes were elevated and transecting across the mesosalpinx and the attachment to the uterine corpus bilaterally the tubes were removed without complication. Excellent hemostasis was noted. Fallopian tubes were removed through the lower port site without complication. Liver and upper abdomen were visualized notably within normal limits and no other gross abnormalities were seen in the abdomen. All instruments removed from the abdomen after gas was desufflated. Port sites were closed with 3-0 Monocryl Steri's and op sites were applied. was prepped and draped in a normal sterile fashion under MAC anesthesia. A weighted speculum was placed in the vagina and the anterior lip of the cervix was grasped with a single-tooth tenaculum. A paracervical block was placed with 1% lidocaine. Cervix was progressively dilated to allow passage of a 5 mm hysteroscope. The lining was fully visualized and noted to have thickened appearance but no gross abnormalities. Uterine sounded to 8 cm. Curettage was performed and large amount of tissue was removed, sent to pathology. All instruments were removed from the vagina and excellent hemostasis was noted. Patient was awoken and taken to recovery in stable condition. Grafts/Implants Used: none Complications none Admit VTE Documentation VTE Present on Admission: No VTE Mechan Device Prophylaxis: SCD's Multi Select Codes Urinary/Genital Urinary/Genital CPT Codes: 34271 Hysteroscopy,EMC, Polypectomy, 53456 Laproscopic BS/O and Other Procedure See Report (iud removal)
[2021-07-24] MEDS: Lidocaine 1% (20 ml mdv) 20 ML Vial (08:23)
[2021-07-24] MEDS: Lubricating Jelly 60 GM Tube 30 GM TOPICAL (08:23)
--- NOTE | 2021-07-24 08:30 | EMB_PTH ---
PATIENT: MERT PERALES LOC: [facility] [place] U#:[id number] AGE/SX: 31/F ROOM: RE07/24/[address]: Dr. Tami Forte MD : 1990 BED: DIS: 07/24/2021 SPEC #: [id number] RECD: 07/24/21 10:27 STATUS: [place] DOYLE #: [id number] JACK: 07/24/21 08:[address]: Tami Forte DEPT: SURGICAL PATHOLOGY RECD BY: Shiela Hay ENTERED: 07/24/21 11:44 SP TYPE: ENDOM BX/C TINA DR: SARAH Smith Tissues: A - Endometrium, NOS B - Fallopian tube Procedures: Surgery Specimen Level II Surgery Specimen Level IV HEADER OPERATION: Hysteroscopy, dilation and curettage, IUD removal PRE-OP DIAGNOSIS: Sterilization, abnormal uterine bleeding TISSUE SUBMITTED: A ? Endometrial curettings, B ? Bilateral fallopian tubes MICROSCOPIC DIAGNOSIS A. Endometrium, curettings: Disordered proliferative endometrium with focal glandular breakdown. Rare fragments of benign superficial endocervix and squamous mucosa. B. Right and left fallopian tubes, bilateral salpingectomies: Two complete segments of fallopian tubes with benign paratubal cysts. AM:nino 07/25/2021 MICROSCOPIC DESCRIPTION Slides are reviewed. GROSS DESCRIPTION A - Received in fixative is one container labeled with the patient's name and designated endometrial curettings. The specimen consists of multiple fragments of hemorrhagic soft tissue that in aggregate measure 5 x 3 x 0.3 cm. The entire specimen is submitted in two cassettes. B - Received in fixative is one container labeled with the patient's name and designated bilateral fallopian tubes. The specimen consists of bilateral fallopian tubes including fimbrial ends each measuring 7 cm in length and 0.5 cm in diameter. The fallopian tubes are not identified as right or left. Sections reveal unremarkable cut surfaces. Urban Planner sections are submitted in two cassettes with each cassette containing one fallopian tube. / SJ:nino 07/24/21 TC:5 CPT: 36679, 48286 x2
--- NOTE | 2021-07-24 08:50 | DCINST_ITS ---
Discharge Instructions Diet Discharge Diet: No restrictions Activity Discharge Activity: Return to Normal Activity, May Not Drive (for 2 weeks or while taking narcotic pain meds.), May Shower and May Take a Tub Bath (in 7 days) May resume sexual activity in: 1 week Weight Bearing Status: Full weight bearing Dressing / Incision Call your doctor if your incision/area has: Continuous Slow Oozing, Sudden Increased Bleeding, Increased Pain/ Swelling, Increased Redness and Foul Smelling Discharge Call your doctor if you observe: Fever of 101 or Higher, Using more than 1 pad per hour, Shortness of breath, Chest pain and Uncontrolled pain Suture Line Care: Avoid Pulling/Pushing and Avoid Pinching/Bending Remove Dressing in: 1 week (if present) Cleanse incision/area with: Soap & Water and Keep Dressing Clean & Dry Follow Up Care When: Call to make an appointment with your doctor for a fu/incision check in 1- 2 weeks. Test Results: Test results from this visit will be discussed in further detail at your follow-up appointment, if applicable. Discharge Plan Admission Primary Reason for Your Visit: sterilization Attending Provider: Tami Forte Primary Care Provider: Cesia Wallis Discharge Orders/Prescriptions Prescriptions: New oxycodone-acetaminophen [Percocet] 5-325 mg tablet 1 tab PO Q6H PRN (Reason: pain) 7 Days Qty: 20 RF: 0 Continued Flintstones Multivitamin Tablet,Chewable 1 tab PO DAILY RF: 0 calcium carbonate [Tums] 200 mg calcium (500 mg) tablet,chewable 200 mg PO BID RF: 0 cyanocobalamin (vitamin B-12) 1,000 mcg capsule 1,000 mcg PO DAILY RF: 0 ursodiol 300 mg capsule 300 mg PO BID RF: 0 omeprazole 20 mg capsule,delayed release(DR/EC) 20 mg PO DAILY RF: 0 cholecalciferol (vitamin D3) 50 mcg (2,000 unit) capsule 50 mcg PO DAILY RF: 0 Discontinued ParaGard T 380A 380 square mm intrauterine device 1 device intrauterine ONCE RF: 0 Referrals / Follow Up: Cesia Wallis PA [Primary Care Provider] - Disposition Disposition (needs filled in before D/C Order can be placed): Home, Self Care
--- NOTE | 2021-07-24 12:45 | SUR.PHASEII ---
PT. AMBULATED TO BATHROOM AND VOIDED. SHE IS TEARFUL FROM ABDOMINAL PAIN. SHE STATES SHE IS TO ONLY TAKE PERCOCET PER HER PRIOR WT. 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 RN CALLED DR. GOMEZ AND OBTAINED ORDER TO CHANGE NORCO TO PERCOCET.
[2021-07-24] MEDS: oxyCODONE 5 MG Tablet PO (12:55)
[2021-07-24] MEDS: Acetaminophen 325 MG Tablet PO (12:55)
== END 2021-07-24 13:25 | disposition home or self-care (01) ==
LOC: SDC 06:57 → AC 06:57
PROVIDERS: PCP Physician Assistant; Referring Provider Obstetrics & Gynecology; Visit Provider Obstetrics & Gynecology
PROC: 0UDB8ZZ Extraction of Endometrium, Via Natural or Artificial Opening Endoscopic (ICD-10-PCS; CPT 58558; principal; 2021-07-24 08:15)
PROC: (CPT 58661; 2021-07-24 08:15)
DX: Z30.2 Encounter for sterilization (principal); N93.9 Abnormal uterine and vaginal bleeding, unspecified; Z30.432 Encounter for removal of intrauterine contraceptive device; E01.0 Iodine-deficiency related diffuse (endemic) goiter
CPT/HCPCS: 00952; 58301; 58558; 58661; 36415; 81025; 85025; 86850; 86900; 86901; 87426; 88302; 88305; J7120; J2405

== ENCOUNTER → 2021-08-01 | Outpatient (CLI) | payer MEDICAID, SELFPAY | END | disposition home or self-care (01) | LOC: LABSPEC 15:22 | PROVIDERS: PCP Physician Assistant; Visit Provider Nurse Practitioner Women's Health | DX: T81.31XA Disruption of external operation (surgical) wound, not elsewhere classified, initial encounter (principal); T81.30XA Disruption of wound, unspecified, initial encounter; Y83.9 Surgical procedure, unspecified as the cause of abnormal reaction of the patient, or of later complication, without mention of misadventure at the time of the procedure; Y92.9 Unspecified place or not applicable | CPT/HCPCS: 87070; 87077; 87186; 87205 ==

== ENCOUNTER → 2021-08-07 09:15 | Outpatient (CLI) | payer MEDICAID, SELFPAY ==
--- NOTE | 2021-08-07 09:16 | US_ITS ---
STUDY: ABDOMINAL ULTRASOUND - RIGHT UPPER QUADRANT REASON FOR VISIT: Female, 31 years old rule out abscess -- UMBILICUS INFECTION CHECK FOR ABSCESS TECHNIQUE: Ultrasound evaluation of the periumbilical region was performed with real-time and static cheatham-scale imaging. TECHNICAL QUALITY: Adequate. COMPARISON: None. FINDINGS: Imaging of the periumbilical region was obtained with ultrasound. No sonographic abnormalities seen. US/Abdomen Limited IMPRESSION: No sonographic abnormality is seen. Electronically Signed: Marcos Padilla MD at 12:11 EDT , Service support ,
== END ==
PROVIDERS: PCP Physician Assistant; Referring Provider Obstetrics & Gynecology; Visit Provider Obstetrics & Gynecology
DX: G89.18 Other acute postprocedural pain (principal)
CPT/HCPCS: 76705

== ENCOUNTER → 2021-08-07 | Outpatient (CLI) | payer MEDICAID, SELFPAY ==
[2021-08-10 13:54] LABS: HPV APTIMA, High Risk Negative (Negative)
== END | disposition home or self-care (01) ==
LOC: LABSPEC 10:15
PROVIDERS: PCP Physician Assistant; Referring Provider Obstetrics & Gynecology; Visit Provider Obstetrics & Gynecology
DX: Z12.4 Encounter for screening for malignant neoplasm of cervix (principal); G89.18 Other acute postprocedural pain
CPT/HCPCS: 76705; 87624; 88175; G0145

== ENCOUNTER → 2021-08-15 | Outpatient (CLI) | payer MEDICAID, SELFPAY ==
[2021-08-17 03:06] LABS: Chlamydia By Nucleic Acid AMP Negative (Negative)
[2021-08-17 08:39] LABS: Gonococcus By Nucleic Acid AMP Negative (Negative)
== END | disposition home or self-care (01) ==
LOC: LABSPEC 11:35
PROVIDERS: PCP Physician Assistant; Referring Provider Nurse Practitioner Women's Health; Visit Provider Nurse Practitioner Women's Health
DX: Z20.2 Contact with and (suspected) exposure to infections with a predominantly sexual mode of transmission (principal)
CPT/HCPCS: 87491; 87591

== ENCOUNTER 2021-09-26 08:18 | Emergency (ER) | payer MEDICAID, SELFPAY ==
[2021-09-26 08:19] VITALS: BP 111/87; PULSE 77; RESP 16; TEMP 36.7; O2SAT 99; BMI 39.4
--- NOTE | 2021-09-26 09:30 | RAD_ITS ---
STUDY: X-RAY - SACRUM/COCCYX REASON FOR EXAM: Female, 31 years old. pain TECHNIQUE: 4 view(s) of the sacrum and coccyx were obtained. COMPARISON: 08/18/2020. FINDINGS: Normal bilateral sacroiliac joints. Normal visualized sacral ala and fused sacral bodies. Normal sacrococcygeal junction with a normal angulation. Normal coccygeal segments. The presacral soft tissue structures are unremarkable. RAD/Sacrum-Coccyx min 2 Views IMPRESSION: Normal x-rays of the sacrum and coccyx. Electronically Signed: Kristyn Hurd MD at 10:12 EDT Tel , Service support ,
--- NOTE | 2021-09-26 10:20 | EX.ED.DYSGE1 ---
HPI History of Present Illness Chief Complaint: Back Narrative Narrative: Patient is a 31-year-old female who states about 2 weeks ago she had a chair pulled out from underneath her. She states this caused her to fall and she landed directly on her buttocks/tailbone. She denies striking her head any loss conscious or blood thinner use. She states she has been doing okay since that time but has had persistent pain in the tailbone region. She states that she is allowed sufficient time for it to resolve on its own but has not done so and therefore she has concern for possible fracture and comes in for evaluation. Otherwise the patient states that she has been able to have normal bowel and bladder movements without any type of hematuria or hematochezia. [facility] Medical History Anemia Back pain Carpal tunnel syndrome Dietary restriction Former smoker Sterilization Home Medications calcium carbonate 200 mg calcium (500 mg) chewable tablet 200 mg PO BID 06/22/21 [History Last Taken Unknown] cholecalciferol (vitamin D3) 50 mcg (2,000 unit) capsule 50 mcg PO DAILY 06/22/21 [History Last Taken Unknown] cyanocobalamin (vitamin B-12) 1,000 mcg capsule 1,000 mcg PO DAILY 06/22/21 [History Last Taken Unknown] omeprazole 20 mg capsule,delayed release 20 mg PO DAILY 06/22/21 [History Last Taken Unknown] pediatric multivitamin 1 tab PO DAILY 06/22/21 [History Last Taken Unknown] ursodiol 300 mg capsule 300 mg PO BID 06/22/21 [History Last Taken Unknown] metronidazole 500 mg tablet 500 mg PO BID #14 tab 08/15/21 [Rx Last Taken Unknown] oxycodone-acetaminophen [Percocet] 1 tab PO Q6H PRN 3 Days #12 tab 09/26/21 [Rx Last Taken Unknown] Allergy/AdvReac Type Severity Reaction Status Date / Time Penicillins Allergy Hives Verified 09/26/21 08:20 tramadol AdvReac Vomiting Verified 09/26/21 08:20 Surgical History History of weight loss surgery Social History adopted: No household members: family housing: house number of children: 3 sexually active: Yes Smoking Status: Former smoker quit date: 11/24/13 pack-years: 12 alcohol intake: never substance use type: does not use caffeine: Yes what type of physical activity do you participate in: walking seatbelt use: always do you feel safe at home: Yes 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 ROS ROS ED Constitutional Constitutional ED: Denies chills or fever(s) Cardiovascular Cardiovascular: Denies chest pain Respiratory/Chest Respiratory/Chest: Denies cough or dyspnea Gastrointestinal Gastrointestinal: Denies abdominal pain, diarrhea, nausea or vomiting Genitourinary Genitourinary ED: Denies dysuria or hematuria Musculoskeletal Musculoskeletal: Reports back pain; Denies myalgias Integumentary Denies rash Neurologic Neurologic: Denies headache(s) Hematologic/Lymphatic Hematologic/Lymphatic: Denies easy bleeding or easy bruising EXAM Physical Exam Const Vital Signs: 09/26/21 08:19 Temperature 98.0 F Temperature Source Temporal Pulse Rate 77 Respiratory Rate 16 Blood Pressure 111/87 H Blood Pressure Mean 95 Pulse Ox 99 Oxygen Delivery Method Room Air Positive well nourished and well developed General Appearance ED: well developed Eyes PERRL and EOMs intact bilaterally Neck supple Resp normal respiratory effort and clear to auscultation bilaterally Cardio regular rate and regular rhythm GI normal to inspection, nondistended, normoactive bowel sounds, non-tender and non-distended Auscultation: normoactive bowel sounds Palpation: soft Back/Spine Back/Spine Narrative: No bony deformity or step-off of the thoracic or lumbar spine no midline pain on palpation. There is midline pain palpation over top of the sacrum/coccyx without surrounding erythema warmth or ecchymosis noted. Extremity normal to inspection Neuro oriented x3 and CN's II-XII intact bilaterally Sensorium / Orientation: alert Psych mental status grossly normal Skin no rashes or lesions noted MDM MDM MDM Narrative Medical decision making narrative: Patient presented to the ER approximately 2 weeks from mechanical fall. Physical exam revealed no secondary soft tissue infection such as a pilonidal cyst cellulitis or abscess. She had no risk factors or physical exam findings concerning for cauda equina or epidural abscess. Therefore I felt any need for an x-ray at this time. X-ray revealed no acute fracture or dislocation indicating she has a sacral/coccyx contusion and can be discharged with symptomatic care. Radiography Diagnostic Testing: Clinical Impression(s) from Imaging Studies Sacrum and Coccyx X-Ray 09/26/21 09:30 IMPRESSION: Normal x-rays of the sacrum and coccyx. Electronically Signed: Kristyn Hurd MD at 10:12 EDT Tel , Service support , Discharge Plan Triage Chief Complaint: Back ED Provider: Naresh Corona Dx/Rx/DC Orders Clinical Impression: Contusion of sacral region Instructions: ED Coccyx or Sacrum Contusion Prescriptions: New oxycodone-acetaminophen [Percocet] 5-325 mg tablet 1 tab PO Q6H PRN (Reason: pain) 3 Days Qty: 12 RF: 0 No Action Flintstones Multivitamin Tablet,Chewable 1 tab PO DAILY RF: 0 calcium carbonate [Tums] 200 mg calcium (500 mg) tablet,chewable 200 mg PO BID RF: 0 cyanocobalamin (vitamin B-12) 1,000 mcg capsule 1,000 mcg PO DAILY RF: 0 ursodiol 300 mg capsule 300 mg PO BID RF: 0 omeprazole 20 mg capsule,delayed release(DR/EC) 20 mg PO DAILY RF: 0 cholecalciferol (vitamin D3) 50 mcg (2,000 unit) capsule 50 mcg PO DAILY RF: 0 metronidazole 500 mg tablet 500 mg PO BID Qty: 14 RF: 0 Primary Care Provider: Cesia Wallis Referrals: Cesia Wallis PA [Primary Care Provider] - Disposition Disposition: Home, Self Care
[2021-09-26] MEDS: oxyCODONE 5 MG Tablet 10 MG PO (10:33)
[2021-09-26 10:34] VITALS: BP 118/62; PULSE 75; RESP 16; O2SAT 98
== END 2021-09-26 10:34 | disposition home or self-care (01) ==
PROVIDERS: Emergency Provider Emergency Medicine; PCP Physician Assistant
DX: S30.0XXA Contusion of lower back and pelvis, initial encounter (principal); W19.XXXA Unspecified fall, initial encounter; Y93.9 Activity, unspecified; Y92.9 Unspecified place or not applicable; Y99.9 Unspecified external cause status; Z87.891 Personal history of nicotine dependence
CPT/HCPCS: 72220; 99283

== ENCOUNTER 2021-12-04 15:03 | Outpatient (CLI) | payer MEDICAID, SELFPAY ==
[2021-12-04 15:18] VITALS: BP 122/83; PULSE 73; RESP 16; TEMP 36.8; O2SAT 98; BMI 35.5
[2021-12-04] MEDS: 0.9% Saline Lock 10 ML Syringe IV (15:24)
[2021-12-04 15:46] VITALS: BP 116/79; PULSE 68; RESP 16; TEMP 37.1; O2SAT 99
[2021-12-04 16:35] VITALS: BP 113/81; PULSE 59; RESP 16; TEMP 37; O2SAT 98
== END 2021-12-04 23:59 | disposition home or self-care (01) ==
LOC: MS3OUT 15:03 → MS3 15:04
PROVIDERS: PCP Physician Assistant; Referring Provider Nurse Practitioner Adult Health; Visit Provider Nurse Practitioner Adult Health
DX: U07.1 COVID-19 (principal)
CPT/HCPCS: J7050; M0243; A4216; Q0244

== ENCOUNTER → 2022-03-26 | Outpatient (CLI) | payer MEDICAID, SELFPAY ==
[2022-04-03 10:09] LABS: Apple 0.42 kU/L (Class I); Carrot 1.24 kU/L (Class II); Clam <0.10 kU/L (Class 0); Codfish <0.10 kU/L (Class 0); Corn 0.44 kU/L (Class I); Egg, White <0.10 kU/L (Class 0); Milk (Cow) 0.33 kU/L (Class I); Orange 0.53 kU/L (Class I); Peanut 0.94 kU/L (Class II); SCALLOP <0.10 kU/L (Class 0); SESAME SEED 0.97 kU/L (Class II); Shrimp 0.13 kU/L (Class 0/I); Soybean 0.34 kU/L (Class I); Strawberry 0.46 kU/L (Class I); Tomato 1.19 kU/L (Class II); Walnut, (Food) 0.28 kU/L (Class 0/I); Wheat 0.56 kU/L (Class II)
[2022-04-03 16:56] LABS: Peach 1.32 kU/L (Class II)
== END | disposition home or self-care (01) ==
PROVIDERS: PCP Physician Assistant; Referring Provider Otolaryngology; Visit Provider Otolaryngology
DX: T78.40XA Allergy, unspecified, initial encounter (principal)
CPT/HCPCS: 36415; 86003

== ENCOUNTER → 2022-05-01 | Outpatient (CLI) | payer MEDICAID, SELFPAY ==
--- NOTE | 2022-05-01 10:14 | MRI_ITS ---
STUDY: MRI BRAIN WITH AND WITHOUT CONTRAST (ATTENTION INTERNAL AUDITORY CANALS - I.A.C.''s) REASON FOR EXAM: Female, 32 years old. LEFT TINNITUS,LEFT HEARING LOSS -- no dizziness TECHNIQUE: Standardized multiplanar fat and water weighted pulse sequences were obtained. IV dotarem 15ml was administered for the contrast portion of the examination. COMPARISON: None. FINDINGS: Normal bilateral temporal bones. Normal bilateral internal auditory canals. There is no demonstrated intracanalicular or cisternal vestibular schwannoma (acoustic neuroma). There is no enhancement of the bilateral VIIth or VIIIth cranial nerves. Normal bilateral cochlea, vestibules and semicircular canals. Normal size of the ventricles and extra-axial spaces for the patient''s age. Normal white matter tracts of the supratentorial brain. There is no evidence for recent intracranial ischemia or other cause of cytotoxic edema on diffusion weighted imaging (DWI). Normal bilateral basal ganglia. Normal thalami. Normal flow voids within the major intracranial circulation suggesting patency by spin echo criteria. Normal venous enhancement. There is no enhancing intra-axial or extra-axial abnormality. There is no extra-axial fluid accumulation. Normal sella turcica, pituitary gland, infundibular stalk, optic chiasm and hypothalamus. Normal tectal plate and pineal gland. Normal midbrain, viviana and medulla. Normal cerebellum. Normal basal cisterns. No demonstrated orbital abnormality, within the constraints of a routine brain study. Normal visualized paranasal sinuses. Normal calvarium and skull base. Normal visualized soft tissue structures. Normal visualized upper cervical spine. MRI/Brain W/WO Contrast IMPRESSION: Normal unenhanced and enhanced MRI of the bilateral internal auditory canals (I.A.C''s). Electronically Signed: James Hunter MD at 15:15 EDT ,
== END | disposition home or self-care (01) ==
LOC: MRI 10:10
PROVIDERS: PCP Physician Assistant; Referring Provider Otolaryngology; Visit Provider Otolaryngology
DX: H93.12 Tinnitus, left ear (principal); H91.92 Unspecified hearing loss, left ear
CPT/HCPCS: 70553; A9575

== ENCOUNTER → 2022-05-23 | Outpatient (CLI) | payer MEDICAID, SELFPAY | END | disposition home or self-care (01) | LOC: LABSPEC 15:02 | PROVIDERS: PCP Physician Assistant; Visit Provider Obstetrics & Gynecology | DX: N39.0 Urinary tract infection, site not specified (principal) | CPT/HCPCS: 87086; 87088 ==

== ENCOUNTER → 2022-07-03 | Outpatient (CLI) | payer MEDICAID, SELFPAY ==
--- NOTE | 2022-07-03 09:19 | BI_ITS ---
MAMMOGRAPHY - BILATERAL DIAGNOSTIC REASON FOR EXAM: Female, 32 years old. One-month history of right breast lump. Patient lost a significant amount of weight. PERTINENT HISTORY: Non-contributory. TECHNIQUE: Digital bilateral breast cristian (3D mammographic acquisition) in the CC and MLO projections. 2-D mediolateral oblique (MLO) and craniocaudad (CC) views of both breasts were obtained. CAD: Full Field Digital Mammography with Computer Added Detection was performed. COMPARISON: None. Baseline examination. FINDINGS: Breast Composition: The breasts are heterogeneously dense, which may obscure small masses. There are no dominant masses or suspicious calcifications. No other significant abnormalities are identified. BI/DIAG MAMM W/CAD, BILAT IMPRESSION: Negative diagnostic mammogram. With the patient''s history of a palpable lump in the central medial portion of the right breast, correlation with ultrasound is recommended. ASSESSMENT CATEGORY: BIRADS Category 0: Incomplete. Need additional imaging evaluation. A letter regarding these results will be sent to the patient by the facility within 30 days. Approximately 10% of breast cancers are not detected by mammography. A normal mammogram should not delay biopsy of a clinically suspicious abnormality. Electronically Signed: Marcos Padilla MD at 10:17 EDT ,
--- NOTE | 2022-07-03 09:19 | US_ITS ---
STUDY: ULTRASOUND BREAST - RIGHT REASON FOR EXAM: Female, 32 years old. Palpable lump in the right breast. TECHNIQUE: Axial and longitudinal images of the RIGHT breast were performed with a high resolution ultrasound transducer. # OF IMAGES: 21 COMPARISON: Comparison is made with prior mammogram done earlier today. FINDINGS: RIGHT Breast: Targeted ultrasound of the right lateral and upper medial aspect of the right breast was obtained. No sonographic abnormality is seen. US/Breast Limited Unilateral IMPRESSION: No sonographic abnormality is seen. ASSESSMENT CATEGORY: BIRADS Category 1: Negative. A letter regarding these results will be sent to the patient by the facility within 30 days. Electronically Signed: Marcos Padilla MD at 10:51 EDT ,
== END | disposition home or self-care (01) ==
LOC: OPUS 09:15
PROVIDERS: PCP Physician Assistant; Visit Provider Physician Assistant
DX: N63.15 Unspecified lump in the right breast, overlapping quadrants (principal)
CPT/HCPCS: 77062; 76642; 77066; G0279

== ENCOUNTER 2022-09-26 20:30 | Emergency (ER) | payer MEDICAID, SELFPAY ==
[2022-09-26 20:31] VITALS: BP 157/98; PULSE 79; RESP 16; TEMP 36.4; O2SAT 100; BMI 29.2
[2022-09-26] MEDS: Ketorolac 15 MG/ML Vial IV (21:39)
[2022-09-26] MEDS: Morphine 4 MG/ML Syringe IV (21:43)
--- NOTE | 2022-09-26 22:24 | EDS_ITS ---
HPI HPI - Fall History of Present Illness Chief Complaint: Fall Pain/Injury Current Severity: Severe Narrative Narrative: Patient presents after falling down 5 of her steps at home and landing on her tailbone this evening. She is in significant pain. She has a hx of sacral pain from a tailbone injury 1 year ago. She denies weakness, bowel/bladder changes, and saddle paresthesia. PFSH PFSH Medical History Anemia Back pain Carpal tunnel syndrome COVID-19 Dietary restriction Former smoker Sterilization Home Medications calcium carbonate 200 mg calcium (500 mg) chewable tablet (Tums) 200 mg PO BID 06/22/21 [History Last Taken Unknown] cholecalciferol (vitamin D3) 50 mcg (2,000 unit) capsule 50 mcg PO DAILY 06/22/21 [History Last Taken Unknown] cyanocobalamin (vitamin B-12) 1,000 mcg capsule 1,000 mcg PO DAILY 06/22/21 [ History Last Taken Unknown] Allergy/AdvReac Type Severity Reaction Status Date / Time Penicillins Allergy Hives Verified 09/26/22 20:34 tramadol AdvReac Vomiting Verified 09/26/22 20:34 Surgical History History of weight loss surgery Social History adopted: No household members: family housing: house number of children: 3 sexually active: Yes Smoking Status: Former smoker quit date: 11/24/13 pack-years: 12 alcohol intake: never substance use type: does not use caffeine: Yes what type of physical activity do you participate in: walking seatbelt use: always do you feel safe at home: Yes 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 ROS ROS ED Constitutional Constitutional ED: Denies chills or fever(s) Eyes Eyes: Denies blurry vision or change in vision ENT ENT ED: Denies rhinorrhea or sore throat Cardiovascular Cardiovascular: Denies chest pain Respiratory/Chest Respiratory/Chest: Denies cough or dyspnea Gastrointestinal Gastrointestinal: Denies abdominal pain, constipation or diarrhea Genitourinary Genitourinary ED: Denies dysuria Musculoskeletal Musculoskeletal: Reports back pain and other Integumentary Denies Abrasions or rash Neurologic Neurologic: Denies headache(s), paresthesias or weakness Psychiatric Psychiatric: Denies anxiety or depression EXAM Physical Exam Const Vital Signs: 09/26/22 20:31 09/26/22 20:39 Temperature 97.5 F L Temperature Source Temporal Pulse Rate 79 Respiratory Rate 16 Respiratory Effort Normal Blood Pressure 157/98 H Blood Pressure Mean 117 Pulse Ox 100 Oxygen Delivery Method Room Air Positive well nourished HEENT Reports normocephalic atraumatic Eyes PERRL and EOMs intact bilaterally Neck full ROM Chest Wall inspection of chest normal Resp normal respiratory effort, no retractions and clear to auscultation bilaterally Cardio regular rate, regular rhythm and no murmurs GI non-tender, non-distended and no masses Narrative: Rectal exam per Dr. Alexis. Back/Spine Back/Spine Narrative: Patiend tender to palpation across sacral spine. No ecchymosis, edema, or redness present. Lumbar Spine / Lower Back: lumbar spinal tenderness Neuro oriented x3, moves all extremities, no focal motor deficits and no sensory de ficits noted Sensorium / Orientation: alert, oriented to person, oriented to place and oriented to time Psych mental status grossly normal and thought process normal Skin Lesions: no lesions Rashes: no rashes MDM MDM MDM Narrative Medical decision making narrative: Patient has a coccyx fracture per Dr. Alexis's rectal exam interpretation and will be sent home with pain medications. Physical exam revealed no secondary soft tissue infection such as a pilonidal cyst or abscess.?No physical exam findings concerning for cauda equina syndrome. Patient stable and will be discharged home. Discharge Plan Triage Chief Complaint: Fall ED Midlevel Provider: Cheyanne Santacruz ED Provider: Blaze Alexis Dx/Rx/DC Orders Instructions: Tailbone (Coccyx) Fracture Prescriptions: No Action calcium carbonate [Tums] 200 mg calcium (500 mg) tablet,chewable 200 mg PO BID cyanocobalamin (vitamin B-12) 1,000 mcg capsule 1,000 mcg PO DAILY cholecalciferol (vitamin D3) 50 mcg (2,000 unit) capsule 50 mcg PO DAILY Primary Care Provider: Cesia Wallis Referrals: Cesia Wallis, SARAH [Primary Care Provider] - 3-5 Days Activity Restrictions/Additional Instructions: Patient instructed to get an air donut to help relieve pressure from sacral spine when sitting. Ice injury 10-20 minutes at a time every 1-2 hours for the next 3 days. Disposition Disposition: Home, Self Care
[2022-09-26 22:57] VITALS: RESP 18
== END 2022-09-26 22:58 | disposition home or self-care (01) ==
PROVIDERS: Emergency Provider Emergency Medicine; PCP Physician Assistant; Visit Provider Emergency Medicine
DX: S32.2XXA Fracture of coccyx, initial encounter for closed fracture (principal); W10.9XXA Fall (on) (from) unspecified stairs and steps, initial encounter; Z79.899 Other long term (current) drug therapy; Z87.891 Personal history of nicotine dependence
CPT/HCPCS: 96374; 96375; 99282; A4216

== ENCOUNTER 2023-01-22 08:25 | Day surgery (SDC) | payer MEDICAID, SELFPAY ==
[2023-01-22] VITALS (10 sets, daily range): BP systolic 98–117; BP diastolic 50–74; PULSE 59–78; RESP 16–18; TEMP 36.2–37; O2SAT 94–100; BMI 30.6
[2023-01-22] MEDS: Clindamycin 900 MG/50 ML BAG 75 MG IV (08:47)
[2023-01-22] MEDS: Lactated Ringers 1,000 ML 15 ML IV ×2 (08:59→11:11)
--- NOTE | 2023-01-22 10:04 | HP.PCM_ITS ---
HPI - General HPI Narrative MERT PERALES, is a 33 F who presents for right ectr. no changes to h and p. ok to proceed. aftercare instructions given. no concerns. marked rigth wrist. R#: [id number] Acct: [id number] Name:MERT OLIVER Rep #: [id number] : 1990 ? ? Provider: Dr. Stepan Ledesma MD Age/Sex:? 32/F ? ? [place] [facility] [place] Status: Signed Intake Intake Visit Reasons:?bl hands Chief Complaint: bilateral hands Allergies Penicillins Allergy (Verified 11/29/22 09:08) Hivestramadol Adverse Reaction (Verified 11/29/22 09:08) Vomiting Medications calcium carbonate 200 mg calcium (500 mg) chewable tablet (Tums) 200 mg PO BID 06/22/21 [History Confirmed 11/29/22] cholecalciferol (vitamin D3) 50 mcg (2,000 unit) capsule 50 mcg PO DAILY 06/22/21 [History Confirmed 11/29/22] cyanocobalamin (vitamin B-12) 1,000 mcg capsule 1,000 mcg PO DAILY 06/22/21 [History Confirmed 11/29/22] PFSH Medical History? Anemia Back pain Bilateral carpal tunnel syndrome Carpal tunnel syndrome COVID-19 Dietary restriction Former smoker Sterilization Surgical History? History of weight loss surgery Social History? adopted:? No household members:? family housing:? house number of children:? 3 sexually active:? Yes Smoking Status:? Former smoker quit date: 11/24/13 pack-years: 12 alcohol intake:? never substance use type:? does not use caffeine:? Yes what type of physical activity do you participate in:? walking seatbelt use:? always do you feel safe at home:? Yes 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:? 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 HPI bl hands Details: Parts of this documentation were recorded by a scribe, this documentation accurately reflects the service provided and the decisions made by me, Dr. Stepan Ledesma MD 11/29/22 0892. MERT PERALES is a 32 year old F here today for follow up bilateral upper extremity nerve conduction studies for bilateral carpal tunnel syndrome.? She did feel like the wrists were sore for couple days after the injections but the numbness and pain is improving.? She is still desiring a surgical solution to the problem. Ortho Exam General General: Yes no acute distress Neurologic: Yes alert and Yes oriented x3 Psychologic: Yes reasonable and appropriate Right Wrist/Hand Skin/Wound: Yes CDI, No Swelling, No Ecchymosis, Yes nail intact and Yes capillary refill normal Right Wrist: Yes ROM-Extension 0-60, ROM-Flexion 0-80, ROM-Pronation 0-80 and ROM-Supination 0-90 Left Wrist/Hand Skin/Wound: Yes CDI, No Swelling, No Ecchymosis, Yes nail intact, Yes capillary refill normal and No erythema Left Wrist: Yes ROM-Extension 0-60, Yes ROM-Flexion 0-80, Yes ROM-Pronation 0-80 and Yes ROM-Supination 0-90 Supplemental Info Nerve conduction studies November 11, 2022 findings right and the left median mononeuropathy as can be seen in carpal tunnel syndrome very mild in degree.? No cervical radicular abnormalities no myelopathic abnormalities. Coding Level of Care Code Off vis,est,level 3 Diagnoses Bilateral carpal tunnel syndrome? G56.03 Assessment and Plan Assessment and Plan (1) Bilateral carpal tunnel syndrome: ?Status:?Acute ?Plan: 32 F bilateral carpal tunnel syndrome.? She did have some relief with the injections however she has been having these for many years she is interested in surgical solution for this which would be carpal tunnel release.? She wishes to go ahead with that on the right side.? We discussed the pros and cons risks and benefits of continued conservative management versus right endoscopic carpal tunnel release and she wishes to go ahead with surgery signed consent form for that as well as possible need for blood products. Pros and cons risks and benefits were discussed with the patient including but not limited to infection, pain, stiffness, bleeding, damage to surrounding structures, neurovascular injury, recurrence or retear, failure or wear of hardware or fixation, instability, fracture, deep vein thrombosis and pulmonary embolism, anesthetic risks, patient dissatisfaction, need for further surgery and other risks.? Patient understood and wished to proceed with surgery, and signed the informed consent documentation. [facility] Medical History (Updated 01/15/23 @ 13:22 by Korin Moe) Back pain Bilateral carpal tunnel syndrome Carpal tunnel syndrome COVID-19 Easy bruising Fatty liver Former smoker Gastric reflux Injury of back Low iron Migraine headache Restless legs Sterilization Wears partial dentures Home Medications calcium carbonate 200 mg calcium (500 mg) chewable tablet (Tums) 200 mg PO BID 06/22/21 [History Last Taken Unknown] cholecalciferol (vitamin D3) 50 mcg (2,000 unit) capsule 50 mcg PO DAILY 06/22/21 [History Last Taken Unknown] cyanocobalamin (vitamin B-12) 1,000 mcg capsule 1,000 mcg PO DAILY 06/22/21 [History Last Taken Unknown] omeprazole 20 mg capsule,delayed release 20 mg PO DAILY 01/15/23 [History Last Taken Unknown] Allergy/AdvReac Type Severity Reaction Status Date / Time Penicillins Allergy Hives Verified 01/22/23 08:54 hydrocodone AdvReac CANT TAKE Verified 01/22/23 08:54 SINCE GASTRIC BYPASS prednisone AdvReac CANT TAKE Verified 01/22/23 08:54 SINCE GASTRIC BYPASS tramadol AdvReac Vomiting Verified 01/22/23 08:54 Surgical History History of weight loss surgery Social History adopted: No household members: family housing: house number of children: 3 sexually active: Yes Smoking Status: Former smoker quit date: 11/24/13 pack-years: 12 alcohol intake: never substance use type: does not use caffeine: Yes what type of physical activity do you participate in: walking seatbelt use: always do you feel safe at home: Yes 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
[2023-01-22] MEDS: Bupivacaine 0.25% 30 ML Vial (10:32)
--- NOTE | 2023-01-22 10:44 | OP.PCM_ITS ---
Problems Associated Problem List Diagnoses (1) Bilateral carpal tunnel syndrome: Report of Operation Date of Procedure: 01/22/23 Pre-Operative Diagnosis: right carpal tunnel syndrome Post-Operative Diagnosis: same Surgery/Procedure Performed:: right endoscopic carpal tunnel release Surgeon: Stepan Ledesma Type of Anesthesia: General and Local Anesthesiologist: Keenan Welch Estimated Blood Loss (mL): 5 Description of Procedure: Patient was brought to the operating room theater.? The patient was administered 900mg iv clindamycin (pen allergy) prior to the start of the procedure.? Placed supine on the operating room table.? Anesthesia induced GA.? SCDs on the legs.? Tourniquet applied to the right upper operative extremity, appropriately padded. Arm table used. Operative extremity prepped and draped in the usual sterile fashion with chlorhexidine-based prep solution allowing over 3 minutes drying time prior to draping.? Preoperative timeout performed to confirm the site patient and the surgery. Used the [facility] endoscopic carpal tunnel kit / technique. Exsanguinated limb. 2cc 0.25% bupivicaine at incision site. Tourniquet up 250mm. ? I made a transverse 2 cm incision in line with the? transverse wrist crease.? This was in line with the fourth digit.? I carried the dissection down through skin and subcutaneous tissue achieved meticulous hemostasis. Just ulnar to palmaris tendon.? I incised the antebrachial fascia.? I passed sequential dilators into the carpal tunnel along the radial border of the Guyon's canal aiming for the fourth digit with the hand in extension.? I used a synovial elevator to identify the transverse fibers of the transverse carpal tunnel lig ament.? Passed the scope into the carpal tunnel. Once I had identified the full proximal and distal extent of the ligament I fully released the ligament under direct visualization by deploying the blade and slowly withdrawing the scope made sequential passes until I no longer felt tension as well as the entire extent of the ligament was released under direct visualization.?Sounded the tunnel with lee tenotomy scissors, complete release, no bands. Arthroscope light was more visible through the skin. Pictures taken and saved. Wound thoroughly irrigated.? Tourniquet let down prior to end of the case and meticulous hemostasis achieved.? Thorough irrigation.? ? Incision closed with 3- 0 Monocryl.? Steri-Strips were applied after the skin was cleaned and dried. Adaptic, gauze, loose wrapped Berto. Patient woken up,? transferred off the operating room table and taken to postanesthetic care unit in stable condition. All sponge needle instrument counts were correct no complications.? Plan for the patient to be discharged home according to day surgery criteria when they are comfortable. Follow-up in the office in 2 days time. Complications none Admit VTE Documentation VTE Present on Admission: No VTE Mechan Device Prophylaxis: SCD's Reason prophylaxis not ordered:: Treatment Not Indicated Procedures Musculoskeletal [id number]-29xxx: 51840 [facility] ENDOSCOPY/SURGERY
--- NOTE | 2023-01-22 10:47 | DCINST_ITS ---
Discharge Instructions Diet Discharge Diet: No restrictions Activity Discharge Activity: Return to Normal Activity Ice area for (Minutes): 10 Lifting Restrictions: no heavy gripping or lifting, ok for ADL's Dressing / Incision Call your doctor if your incision/area has: Continuous Slow Oozing, Sudden Increased Bleeding, Increased Pain/ Swelling, Increased Redness, Foul Smelling Discharge and Swelling at the incision site Remove Dressing in: leave in place till F/U Follow Up Care Please Follow Up With: Stepan Ledesma MD When: 2 days Test Results: Test results from this visit will be discussed in further detail at your follow- up appointment, if applicable. Discharge Plan Admission Attending Provider: Stepan Ledesma Primary Care Provider: Cesia Wallis Instructions Patient Instructions: Carpal Tunnel Release Surgery Discharge Orders/Prescriptions Prescriptions: No Action calcium carbonate [Tums] 200 mg calcium (500 mg) tablet,chewable 200 mg PO BID cyanocobalamin (vitamin B-12) 1,000 mcg capsule 1,000 mcg PO DAILY cholecalciferol (vitamin D3) 50 mcg (2,000 unit) capsule 50 mcg PO DAILY omeprazole 20 mg Capsule,Delayed Release(Dr/Ec) 20 mg PO DAILY Referrals / Follow Up: Cesia Wallis PA [Primary Care Provider] - Stepan Ledesma MD [Med Staff - Active Staff] - Disposition Disposition (needs filled in before D/C Order can be placed): Home, Self Care
== END 2023-01-22 13:30 | disposition home or self-care (01) ==
LOC: SDC 08:26 → AC 08:27
PROVIDERS: PCP Physician Assistant; Visit Provider Orthopaedic Surgery Sports Medicine
PROC: (CPT 29848; principal; 2023-01-22 09:50)
DX: G56.03 Carpal tunnel syndrome, bilateral upper limbs (principal); Z87.891 Personal history of nicotine dependence; Z86.16 Personal history of COVID-19
CPT/HCPCS: 29848; 01810; J7120; J2405

== ENCOUNTER 2023-08-20 08:14 | Emergency (ER) | payer MEDICAID, SELFPAY ==
[2023-08-20 08:15] VITALS: BP 122/72; PULSE 79; RESP 14; TEMP 36.3; O2SAT 98; BMI 29.2
--- NOTE | 2023-08-20 08:32 | ED.VIS.LOWEX ---
HPI History of Present Illness Chief Complaint: Lower Extremity Injury Informant: patient Onset/Context/Timing Onset: Today Current Severity: Moderate Maximum Severity: Moderate Narrative Narrative: Patient presents secondary to right foot/ankle pain. She states that she was rushing to the kitchen this morning to grab a trash can as her daughter was getting sick. She thinks her foot might have been asleep. She states that she rolled her foot and stepped down hard causing pain in the right foot area. PFSH PFSH Medical History Back pain Bilateral carpal tunnel syndrome Carpal tunnel syndrome COVID-19 Easy bruising Fatty liver Former smoker Gastric reflux Injury of back Low iron Migraine headache Restless legs Sterilization Wears partial dentures Home Medications calcium carbonate 200 mg calcium (500 mg) chewable tablet (Tums) 200 mg PO BID 06/22/21 [History Last Taken Unknown] cholecalciferol (vitamin D3) 50 mcg (2,000 unit) capsule 50 mcg PO DAILY 06/22/21 [History Last Taken Unknown] cyanocobalamin (vitamin B-12) 1,000 mcg capsule 1,000 mcg PO DAILY 06/22/21 [History Last Taken Unknown] omeprazole 20 mg capsule,delayed release 20 mg PO DAILY 01/15/23 [History Last Taken Unknown] oxycodone 5 mg tablet 5 mg PO Q8H PRN pain 3 days #12 tabs 08/20/23 [Rx Last Taken Unknown] Allergy/AdvReac Type Severity Reaction Status Date / Time Penicillins Allergy Hives Verified 08/20/23 08:16 hydrocodone AdvReac CANT TAKE Verified 08/20/23 08:16 SINCE GASTRIC BYPASS prednisone AdvReac CANT TAKE Verified 08/20/23 08:16 SINCE GASTRIC BYPASS tramadol AdvReac Vomiting Verified 08/20/23 08:16 Surgical History History of weight loss surgery Social History adopted: No household members: family housing: house number of children: 3 sexually active: Yes Smoking Status: Former smoker quit date: 11/24/13 pack-years: 12 alcohol intake: never substance use type: does not use caffeine: Yes what type of physical activity do you participate in: walking seatbelt use: always do you feel safe at home: Yes 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 ROS ROS ED Constitutional Constitutional ED: Denies chills or fever(s) Eyes Eyes: Denies change in vision or discharge from eye(s) ENT ENT ED: Denies discharge from eye(s), rhinorrhea or sore throat Cardiovascular Cardiovascular: Denies chest pain or palpitations Respiratory/Chest Respiratory/Chest: Denies cough or dyspnea Gastrointestinal Gastrointestinal: Denies abdominal pain, nausea or vomiting Musculoskeletal Musculoskeletal: Reports extremity pain; Denies back pain Integumentary Denies Abrasions or rash Neurologic Neurologic: Denies headache(s) or weakness Psychiatric Psychiatric: Denies anxiety or depression Allergic/Immunologic Allergic/Immunologic ED: Denies lip swelling or urticaria EXAM Physical Exam Const Vital Signs: 08/20/23 08:15 Temperature 97.4 F L Temperature Source Temporal Pulse Rate 79 Respiratory Rate 14 Blood Pressure 122/72 H Blood Pressure Mean 88 Pulse Ox 98 Oxygen Delivery Method Room Air Positive well nourished and well developed General Appearance ED: well developed HEENT Reports normocephalic and head/scalp atraumatic Eyes PERRL and EOMs intact bilaterally Neck supple Chest Wall inspection of chest normal and palpation of chest normal Resp normal respiratory effort and clear to auscultation bilaterally Cardio regular rate and regular rhythm GI normal to inspection, nondistended, normoactive bowel sounds Palpation: soft Extremity Extremity Narrative: Edema and tenderness palpation noted on the lateral malleolus of the right ankle. Mild tenderness to the lateral aspect of the right foot. Strong distal pulses. Can wiggle toes and has normal sensation. No tenderness noted at the right knee or hip. Neuro oriented x3 and no sensory deficits noted Sensorium / Orientation: alert Motor Exam: strength 5/5 throughout Psych Psych Narrative: Tearful Skin no rashes or lesions noted MDM MDM MDM Narrative Medical decision making narrative: Given the patient's prior gastric bypass, anti-inflammatories are avoided. She is not able to take tramadol or hydrocodone. She states she has tolerated oxycodone in the past without difficulty. She is given a dose of that here for pain control. X-rays of the right foot and ankle are obtained to evaluate for fracture. Radiography Diagnostic Testing: Clinical Impression(s) from Imaging Studies Ankle X-Ray 08/20/23 08:38 IMPRESSION: Nondisplaced avulsion fracture of the lateral malleolus. Overlying soft tissue swelling. Electronically Signed: Marcos Padilla MD at 9:35 EDT , Foot X-Ray 08/20/23 08:38 IMPRESSION: Plantar spur. Soft tissue swelling. Electronically Signed: Marcos Padilla MD at 9:32 EDT , Treatment and Re-Evaluation Narrative: X-ray of the foot and ankle per my interpretation reveals no obvious abnormalities. Radiology interpretation is reviewed and does feel there is a nondisplaced avulsion fracture of the lateral malleolus. Patient be given crutches. I offered a air splint, however patient is refusing this stating that she cannot put any pressure on it at this time. I offered to send her home with that and after icing she can apply this, but states that she has a boot at home that she can use. She is known to Dr. Enrique and will follow-up in the office with him. I will send oxycodone to the pharmacy for her. Discharge Plan Triage Chief Complaint: Lower Extremity Injury ED Provider: Jayashree Nava Dx/Rx/DC Orders Clinical Impression: Avulsion fracture of right ankle Instructions: ED Ankle Fracture, Distal Fibula Prescriptions: New oxycodone 5 mg tablet 5 mg PO Q8H PRN (Reason: pain) 3 Days Qty: 12 0RF No Action calcium carbonate [Tums] 200 mg calcium (500 mg) tablet,chewable 200 mg PO BID cyanocobalamin (vitamin B-12) 1,000 mcg capsule 1,000 mcg PO DAILY cholecalciferol (vitamin D3) 50 mcg (2,000 unit) capsule 50 mcg PO DAILY omeprazole 20 mg Capsule,Delayed Release(Dr/Ec) 20 mg PO DAILY Primary Care Provider: Cesia Wallis Referrals: Bryan Enrique DO [Med Staff - Active Staff] - 1 Week Cesia Wallis, PA [Primary Care Provider] - Disposition Disposition: Home, Self Care
--- NOTE | 2023-08-20 08:38 | RAD_ITS ---
STUDY: X-RAY - RIGHT ANKLE REASON FOR EXAM: Female, 33 years old. Pain and swelling following a fall. TECHNIQUE: 3 view(s) of the ankle. COMPARISON: None. FINDINGS: Normal visualized distal tibia and fibula. Nondisplaced avulsion fracture of the lateral malleolus. Normal tibiotalar articulation and ankle mortise. Plantar spur. The visualized subtalar, talonavicular, calcaneocuboid and tarsal articulations are normal. Diffuse lateral soft tissue swelling. RAD/Ankle min 3 Views IMPRESSION: Nondisplaced avulsion fracture of the lateral malleolus. Overlying soft tissue swelling. Electronically Signed: Marcos Padilla MD at 9:35 EDT ,
--- NOTE | 2023-08-20 08:38 | RAD_ITS ---
STUDY: X-RAY - RIGHT FOOT CLINICAL: Female, 33 years old. Injury TECHNIQUE: 3 view(s) of the foot. COMPARISON: None. FINDINGS: There is a plantar calcaneal spur. Normal visualized subtalar, talonavicular, calcaneocuboid, tarsal and tarsometatarsal articulations. Normal metatarsi. Normal metatarsophalangeal joint of the great toe. Normal tibial and fibular sesamoid bones. Normal interphalangeal joint of the great toe. Normal phalanges of the great toe. Normal second through fifth metatarsophalangeal joints. Normal interphalangeal joints and phalanges of the lesser toes. There is non-specific soft tissue swelling of the foot. RAD/Foot min 3 Views IMPRESSION: Plantar spur. Soft tissue swelling. Electronically Signed: Marcos Padilla MD at 9:32 EDT ,
[2023-08-20] MEDS: oxyCODONE 5 MG Tablet PO (08:54)
== END 2023-08-20 10:08 | disposition home or self-care (01) ==
PROVIDERS: Emergency Provider Emergency Medicine; PCP Physician Assistant; Visit Provider Emergency Medicine
DX: S82.64XA Nondisplaced fracture of lateral malleolus of right fibula, initial encounter for closed fracture (principal); X50.1XXA Overexertion from prolonged static or awkward postures, initial encounter; Y92.000 Kitchen of unspecified non-institutional (private) residence as the place of occurrence of the external cause; Z87.891 Personal history of nicotine dependence; Z98.84 Bariatric surgery status
CPT/HCPCS: 73610; 73630; 99284

== ENCOUNTER 2023-09-18 18:55 | Emergency (ER) | payer MEDICAID, SELFPAY ==
[2023-09-18 18:57] VITALS: BP 152/95; PULSE 152; RESP 18; TEMP 36.1; O2SAT 98; BMI 31.6
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
[2023-09-18] MEDS: Ondansetron ODT 4 MG Tablet PO (19:55)
[2023-09-18] MEDS: Orphenadrine 60 MG/2 ML Ampul IM (19:55)
--- NOTE | 2023-09-18 20:06 | CT_ITS ---
STUDY: CT CERVICAL SPINE WITHOUT CONTRAST REASON FOR EXAM: Female, 33 years old. neck pain, abnormal x-ray RADIATION DOSAGE (If Supplied By Facility): CTDIvol = ( 18.35 ) mGy, DLP = ( 402.07 ) mGycm TECHNIQUE: High resolution transaxial imaging was performed without contrast material. Sagittal and coronal images were reconstructed. Individualized dose optimization techniques were used for this CT. COMPARISON: None FINDINGS: Normal craniovertebral junction. Normal anterior atlantoaxial articulation. Normal odontoid process. Normal cervical lordosis. Normal vertebral bodies and posterior osseous elements. C2-3: Normal endplates. Normal disc height and morphology. Normal central canal and intervertebral neuroforamina. C3-4: Normal endplates. Normal disc height and morphology. Normal central canal and intervertebral neuroforamina. C4-5: Mild spurring at the endplates. Normal disc height with slight left paramedian disc protrusion. Normal central canal and intervertebral neuroforamina. C5-6: Normal endplates. Normal disc height with mild posterior annular bulge. Normal central canal and intervertebral neuroforamina. C6-7: Normal endplates. Normal disc height and morphology. Normal central canal and intervertebral neuroforamina. C7-T1: Normal endplates. Normal disc height and morphology. Normal central canal and intervertebral neuroforamina. Normal visualized soft tissue structures. CT/Spine Cervical without Contras IMPRESSION: Mild degenerative changes and discogenic disease of the cervical spine. Electronically Signed: Carmine Chavarria DO at 20:40 EDT Reading Location ID and State: [facility] / [place] Tel [phone], Service support ,
[2023-09-18 21:20] VITALS: RESP 20; O2SAT 98
[2023-09-18] MEDS: proCHLORPERazine 10 MG/2 ML Vial IM (21:49)
== END 2023-09-18 22:34 | disposition home or self-care (01) ==
PROVIDERS: Emergency Provider Emergency Medicine; PCP Physician Assistant; Visit Provider Emergency Medicine
DX: S13.4XXA Sprain of ligaments of cervical spine, initial encounter (principal); V49.40XA Driver injured in collision with unspecified motor vehicles in traffic accident, initial encounter; R11.2 Nausea with vomiting, unspecified; Z87.891 Personal history of nicotine dependence; Z98.84 Bariatric surgery status
CPT/HCPCS: 72040; 72125; 96372; 99284

== ENCOUNTER 2023-10-28 01:39 | Emergency (ER) | payer MEDICAID, SELFPAY ==
[2023-10-28 01:39] VITALS: BP 121/75; PULSE 101; RESP 16; TEMP 36.3; O2SAT 99; BMI 32.5
--- NOTE | 2023-10-28 01:52 | EX.ED.UPPERE ---
HPI History of Present Illness Chief Complaint: Laceration Informant: patient and spouse/S.O. Narrative Narrative: Laceration left index finger 90 minutes prior to arrival. Cotton off the tip of the glue bottle when she cut her finger. Tetanus unknown. No anticoagulant Tetanus Immunization: Unknown [facility] Medical History Back pain Bilateral carpal tunnel syndrome Carpal tunnel syndrome COVID-19 Easy bruising Fatty liver Former smoker Gastric reflux Injury of back Low iron Migraine headache Restless legs Sterilization Wears partial dentures Home Medications calcium carbonate 200 mg calcium (500 mg) chewable tablet (Tums) 200 mg PO BID 06/22/21 [History Last Taken Unknown] cholecalciferol (vitamin D3) 50 mcg (2,000 unit) capsule 50 mcg PO DAILY 06/22/21 [History Last Taken Unknown] cyanocobalamin (vitamin B-12) 1,000 mcg capsule 1,000 mcg PO DAILY 06/22/21 [History Last Taken Unknown] oxycodone 5 mg tablet 5 mg PO Q8H PRN pain 3 days #12 tabs 08/20/23 [Rx Last Taken Unknown] cyclobenzaprine 10 mg tablet 10 mg PO TID PRN Muscle Spasm #20 TABLETS 09/18/23 [Rx Last Taken Unknown] ondansetron 4 mg disintegrating tablet 4 mg PO Q6H PRN nausea and vomiting #15 tabs 09/18/23 [Rx Last Taken Unknown] Allergy/AdvReac Type Severity Reaction Status Date / Time Penicillins Allergy Hives Verified 10/28/23 01:40 hydrocodone AdvReac CANT TAKE Verified 10/28/23 01:40 SINCE GASTRIC BYPASS prednisone AdvReac CANT TAKE Verified 10/28/23 01:40 SINCE GASTRIC BYPASS tramadol AdvReac Vomiting Verified 10/28/23 01:40 Surgical History History of weight loss surgery Social History adopted: No household members: family housing: house number of children: 3 sexually active: Yes Smoking Status: Former smoker quit date: 11/24/13 pack-years: 12 alcohol intake: never substance use type: does not use caffeine: Yes what type of physical activity do you participate in: walking seatbelt use: always do you feel safe at home: Yes 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 ROS ROS ED Constitutional Constitutional ED: Denies chills, fever(s) or sweats Eyes Eyes: Denies change in vision ENT ENT ED: Denies dysphagia or sore throat Cardiovascular Cardiovascular: Denies chest pain, leg edema, palpitations or racing heartbeat Respiratory/Chest Respiratory/Chest: Denies cough, dyspnea or dyspnea on exertion Gastrointestinal Gastrointestinal: Denies abdominal pain, diarrhea, nausea or vomiting Genitourinary Genitourinary ED: Denies dysuria, hematuria or urinary frequency Musculoskeletal Musculoskeletal: Denies back pain, extremity pain or neck pain Integumentary Reports wounds; Denies rash Neurologic Neurologic: Denies headache(s), paresthesias or weakness EXAM Physical Exam Const Vital Signs: 10/28/23 01:39 Temperature 97.3 F L Temperature Source Temporal Pulse Rate 101 H Respiratory Rate 16 Blood Pressure 121/75 H Blood Pressure Mean 90 Pulse Ox 99 Oxygen Delivery Method Room Air Positive well nourished and well developed General Appearance ED: well developed and NAD HEENT Reports moist mucous membranes normocephalic and atraumatic Eyes General Eye ED: Yes normal appearance of both eyes Neck no lymphadenopathy and supple General: Negative for tenderness Chest Wall Chest: Negative for tenderness Resp normal respiratory effort and normal air movement Effort and Inspection: symmetric chest movement; Negative for respiratory distress Cardio regular rate, regular rhythm and no murmurs Peripheral Pulses: pulses 2+ throughout GI normal to inspection, nondistended, normoactive bowel sounds and non-tender Palpation: Negative for guarding or rebound tenderness present Back/Spine no CVA tenderness and no thoracic nor lumbar tenderness Extremity Extremity Narrative: Left hand index finger: Vertical laceration volar aspect distal phalanx extending 2.5 cm, no joint involvement. No nailbed involvement. General Extremety ED: Negative for edema or tenderness General Extremity: Negative for edema Neuro oriented x3 and no sensory deficits noted Sensorium / Orientation: awake and alert Skin no rashes or lesions noted and no wounds MDM MDM MDM Narrative Medical decision making narrative: Interventions / MDM: Differential diagnosis: Finger laceration Diagnosis considered but do not suspect: No clinical tendon injury My EKG interpretation: N/A Imaging independently reviewed and interpreted by myself: N/A External documents reviewed: N/A Test considered but not ordered:N/A ED course: Patient laceration distal tip of the finger, no areas for tendon injury. 3 layers of Dermabond was placed to help with hemostasis. Tetanus updated. Wound care discussed with the patient. Outpatient follow-up. All questions were answered. Re-evaluation: stable Disposition discussed with patient/family/significant other: Patient and significant other Case discussed with consulting clinician: N/A This note was generated with [employer] dictation software. It may contain incorrect words, spelling, and punctuation that were not noted in checking the note before signing. Discharge Plan Triage Chief Complaint: Laceration ED Provider: Hermilo Silva Dx/Rx/DC Orders Clinical Impression: Tetanus toxoid vaccination administered at current visit, Laceration of left index finger Instructions: ED Laceration: Skin Adhesive Prescriptions: No Action calcium carbonate [Tums] 200 mg calcium (500 mg) tablet,chewable 200 mg PO BID cyanocobalamin (vitamin B-12) 1,000 mcg capsule 1,000 mcg PO DAILY cholecalciferol (vitamin D3) 50 mcg (2,000 unit) capsule 50 mcg PO DAILY oxycodone 5 mg tablet 5 mg PO Q8H PRN (Reason: pain) 3 Days Qty: 12 0RF cyclobenzaprine 10 mg tablet 10 mg PO TID PRN (Reason: Muscle Spasm) Qty: 20 0RF ondansetron 4 mg tablet,disintegrating 4 mg PO Q6H PRN (Reason: nausea and vomiting) Qty: 15 0RF Primary Care Provider: Cesia Wallis Referrals: Cesia Wallis PA [Primary Care Provider] - 1-2 Weeks Activity Restrictions/Additional Instructions: Tetanus was updated in the ED. Dermabond was placed over the wound. Do not pick or remove the glue, allow this to spontaneously come off. Follow-up with your doctor. Disposition Disposition: Home, Self Care Discharge Date/Time: 10/28/23 02:01
[2023-10-28] MEDS: Diphth,Pertuss(Acell),Tet Vac 0.5 ML Vial IM (01:57)
== END 2023-10-28 02:01 | disposition home or self-care (01) ==
PROVIDERS: Emergency Provider Emergency Medicine; PCP Physician Assistant; Visit Provider Emergency Medicine
DX: S61.211A Laceration without foreign body of left index finger without damage to nail, initial encounter (principal); W26.8XXA Contact with other sharp object(s), not elsewhere classified, initial encounter; Z23 Encounter for immunization; Z87.891 Personal history of nicotine dependence
CPT/HCPCS: 12001; 90471; 99282

== ENCOUNTER 2024-04-03 12:54 | Emergency (ER) | payer MEDICAID, SELFPAY ==
[2024-04-03 12:55] VITALS: BP 136/93; PULSE 82; RESP 16; TEMP 36.6; O2SAT 99; BMI 31.1
--- NOTE | 2024-04-03 13:14 | ED.VIS.BACK ---
HPI <SARAH Pineda - Last Filed: 04/03/24 13:58> History of Present Illness Chief Complaint: Back Narrative Narrative: Patient presenting today with low back pain she has had over the past 3 weeks. 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 She denies any direct trauma to her back. She reports that she has been taking Tylenol, using a heating pad, and sitting in her massage chair with little relief. Over the past few days she has noticed a intermittent numbness to her bilateral hips. She denies any bowel/bladder incontinence, saddle paresthesia, fevers, chills, or urinary symptoms. PFSH <SARAH Pineda - Last Filed: 04/03/24 13:58> [facility] Medical History Back pain Bilateral carpal tunnel syndrome Carpal tunnel syndrome COVID-19 Easy bruising Fatty liver Former smoker Gastric reflux Injury of back Low iron Migraine headache Restless legs Sterilization Wears partial dentures Home Medications calcium carbonate (Tums) 200 mg PO BID 06/22/21 [History Last Taken 04/02/24] cholecalciferol (vitamin D3) 50 mcg (2,000 unit) capsule 50 mcg PO DAILY 06/22/21 [History Last Taken 04/02/24] cyanocobalamin (vitamin B-12) 1,000 mcg capsule 1,000 mcg PO DAILY 06/22/21 [History Last Taken Unknown] cyclobenzaprine 10 mg tablet 10 mg PO TID PRN Muscle Spasm #20 TABLETS 09/18/23 [Rx Last Taken Unknown] omeprazole 20 mg capsule,delayed release 20 mg PO DAILY 04/03/24 [History Last Taken 04/03/24] prednisone 20 mg tablet 40 mg (2 x 20 mg) PO DAILY 6 days #12 tabs 04/03/24 [Rx Last Taken Unknown] Allergy/AdvReac Type Severity Reaction Status Date / Time Penicillins Allergy Hives Verified 04/03/24 12:56 hydrocodone AdvReac CANT TAKE Verified 04/03/24 12:56 SINCE GASTRIC BYPASS prednisone AdvReac CANT TAKE Verified 04/03/24 12:56 SINCE GASTRIC BYPASS tramadol AdvReac Vomiting Verified 04/03/24 12:56 Surgical History History of weight loss surgery Social History adopted: No household members: family housing: house number of children: 3 sexually active: Yes Smoking Status: Former smoker quit date: 11/24/13 pack-years: 12 alcohol intake: never substance use type: does not use caffeine: Yes what type of physical activity do you participate in: walking seatbelt use: always do you feel safe at home: Yes 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 ROS <SARAH Pineda - Last Filed: 04/03/24 13:58> ROS ED Constitutional Constitutional ED: Denies chills or fever(s) Cardiovascular Cardiovascular: Denies chest pain Respiratory/Chest Respiratory/Chest: Denies dyspnea Gastrointestinal Gastrointestinal: Denies abdominal pain, nausea or vomiting Genitourinary Genitourinary ED: Denies dysuria, hematuria or urinary urgency Musculoskeletal Musculoskeletal: Reports back pain Integumentary Denies rash Neurologic Neurologic: Reports paresthesias; Denies weakness EXAM <SARAH Pineda - Last Filed: 04/03/24 13:58> Physical Exam Const Vital Signs: 04/03/24 12:55 04/03/24 13:35 Temperature 98 F 98.2 F Temperature Source Temporal Pulse Rate 82 73 Respiratory Rate 16 16 Blood Pressure 136/93 H 130/95 H Blood Pressure Mean 107 106 Pulse Ox 99 98 Oxygen Delivery Method Room Air Positive well nourished, well developed and no apparent distress General Appearance ED: well developed HEENT Reports normocephalic and head/scalp atraumatic Mouth ED: Yes moist mucous membranes normal Eyes PERRL and EOMs intact bilaterally Neck full ROM and supple Chest Wall inspection of chest normal Resp normal respiratory effort and clear to auscultation bilaterally Cardio regular rate and regular rhythm GI soft to palpation, non-tender, non-distended and no masses Back/Spine normal ROM and normal to inspection Back/Spine Narrative: Minimal midline tenderness to the lower lumbar/ sacral spine Extremity normal to inspection and full ROM Neuro oriented x3, CN's II-XII intact bilaterally, moves all extremities, no focal motor deficits and no sensory deficits noted Sensorium / Orientation: awake and alert Motor Exam: strength 5/5 throughout Deep Tendon Reflexes: Rt Patellar (L4): 2+ and Lt Patellar (L4): 2+ Deep Tendon Reflexes Back: Rt Patellar (L4): 2+ and Lt Patellar (L4): 2+ Psych mental status grossly normal and thought process normal Skin no rashes or lesions noted and no wounds <Dr. Deepak De La Garza MD - Last Filed: 04/03/24 13:26> Physical Exam Const Vital Signs: 04/03/24 12:55 04/03/24 13:35 Temperature 98 F 98.2 F Temperature Source Temporal Pulse Rate 82 73 Respiratory Rate 16 16 Blood Pressure 136/93 H 130/95 H Blood Pressure Mean 107 106 Pulse Ox 99 98 Oxygen Delivery Method Room Air MDM <SARAH Pineda - Last Filed: 04/03/24 13:58> [facility] MDM Narrative Medical decision making narrative: Patient presenting due to low back pain she has had over the past 3 weeks. 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 No direct trauma to her back, no symptoms of cauda equina syndrome, low suspicion for spinal abscess. Strength and reflexes in the lower extremities are intact. Do not feel that emergent imaging is indicated at this time. She will be placed on a week of prednisone, did encourage that she follow-up with her PCP as she may need an outpatient MRI. She will be discharged home in stable condition. I have personally performed a face to face assessment of the patient and have reviewed the ESTEFANI Note. I performed a substantive portion of the visit including all aspects of the following. My alves findings include: History is 34-year-old female history of back problems no prior back surgery. Says for the last 2 weeks she has had lower back pain with subjective numbness in her hips. No weakness. No bowel or bladder incontinence. No fever. No fall or trauma. No prior back surgery. No prior back injections. Exam is [well-appearing 34-year-old female. Sitting upright in bed. Vital signs stable afebrile. HEENT exam normal. Lungs clear. Heart regular rhythm. Abdomen soft, nontender, nondistended normal bowel sounds no peritoneal signs. Moving all 4 extremities. 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 Dorsi plantarflexion intact equal symmetrical. No cauda equina. No saddle anesthesia. Normal medial thigh sensation. Low back pain with raising her right leg. No radiculopathy. Back tenderness over the lower lumbar spine. No signs of trauma. No ecchymosis or bruising. Neurologic exam normal. No focal motor deficits. No muscular atrophy or weakness.] Medical Decision Making [patient has back pain may or may not have a lumbar disc. Does not need emergent MRI. She will be placed on prednisone 40 mg a day for a week. Outpatient follow-up with her doctor if not improving outpatient lumbar MRI. Return if worse.] Other additions or changes: [None] <Dr. Deepak De La Garza MD - Last Filed: 04/03/24 13:26> [facility] Narrative Medical decision making narrative: Patient presenting due to low back pain she has had over the past 3 weeks. 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 No direct trauma to her back, no symptoms of cauda equina syndrome, low suspicion for spinal abscess. Strength and reflexes in the lower extremities are intact. I have personally performed a face to face assessment of the patient and have reviewed the ESTEFANI Note. I performed a substantive portion of the visit including all aspects of the following. My alves findings include: History is 34-year-old female history of back problems no prior back surgery. Says for the last 2 weeks she has had lower back pain with subjective numbness in her hips. No weakness. No bowel or bladder incontinence. No fever. No fall or trauma. No prior back surgery. No prior back injections. Exam is [well-appearing 34-year-old female. Sitting upright in bed. Vital signs stable afebrile. HEENT exam normal. Lungs clear. Heart regular rhythm. Abdomen soft, nontender, nondistended normal bowel sounds no peritoneal signs. Moving all 4 extremities. 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 Dorsi plantarflexion intact equal symmetrical. No cauda equina. No saddle anesthesia. Normal medial thigh sensation. Low back pain with raising her right leg. No radiculopathy. Back tenderness over the lower lumbar spine. No signs of trauma. No ecchymosis or bruising. Neurologic exam normal. No focal motor deficits. No muscular atrophy or weakness.] Medical Decision Making [patient has back pain may or may not have a lumbar disc. Does not need emergent MRI. She will be placed on prednisone 40 mg a day for a week. Outpatient follow-up with her doctor if not improving outpatient lumbar MRI. Return if worse.] Other additions or changes: [None] Discharge Plan Triage Chief Complaint: Back ED Midlevel Provider: Cheyanne Santacruz ED Provider: Deepak De La Garza Dx/Rx/DC Orders Clinical Impression: Back pain Instructions: ED Back Sprain/Strain Prescriptions: New prednisone 20 mg tablet 40 mg PO DAILY 6 Days Qty: 12 0RF No Action calcium carbonate [Tums] 200 mg calcium (500 mg) tablet,chewable 200 mg PO BID cyanocobalamin (vitamin B-12) 1,000 mcg capsule 1,000 mcg PO DAILY cholecalciferol (vitamin D3) 50 mcg (2,000 unit) capsule 50 mcg PO DAILY cyclobenzaprine 10 mg tablet 10 mg PO TID PRN (Reason: Muscle Spasm) Qty: 20 0RF omeprazole 20 mg capsule,delayed release(DR/EC) 20 mg PO DAILY Primary Care Provider: Cesia Wallis Referrals: Cesia Wallis, SARAH [Primary Care Provider] - 1 Week if not improving Activity Restrictions/Additional Instructions: Please follow-up with your PCP and return for any worsening of symptoms. Disposition Disposition: Home, Self Care Discharge Date/Time: 04/03/24 13:40
[2024-04-03 13:35] VITALS: BP 130/95; PULSE 73; RESP 16; TEMP 36.8; O2SAT 98
== END 2024-04-03 13:40 | disposition home or self-care (01) ==
LOC: ED 13:32
PROVIDERS: Emergency Provider Emergency Medicine; PCP Physician Assistant; Visit Provider Emergency Medicine
DX: M54.50 Low back pain, unspecified (principal); Z79.899 Other long term (current) drug therapy; Z87.891 Personal history of nicotine dependence
CPT/HCPCS: 99282

== ENCOUNTER 2024-08-01 09:43 | Emergency (ER) | payer MEDICAID, SELFPAY ==
[2024-08-01 09:43] VITALS: BP 136/94; PULSE 81; RESP 16; TEMP 36; O2SAT 100; BMI 32.7
--- NOTE | 2024-08-01 09:46 | RAD_ITS ---
HISTORY: sick for a week an a half and quot;, stuffy nose, burning chest, and quot;cant breathe. TECHNIQUE: XR Chest 1 View. COMPARISON: 02/16/2021. FINDINGS: CARDIOMEDIASTINAL BORDERS: Cardiac silhouette within normal limits in size. Mediastinal contour unremarkable. LUNGS: Radiographically clear. PLEURA: No pleural effusion or pneumothorax seen. OSSEOUS STRUCTURES: Unremarkable. RAD/Chest 1 View (Portable) IMPRESSION: No acute cardiopulmonary process identified. Electronically Signed: Rachel Almanzar MD at 10:20 EDT ,
--- NOTE | 2024-08-01 10:22 | EX.ED.VIS.UR ---
HPI HPI - URI History of Present Illness Chief Complaint: Cold Sx Informant: patient Onset/Context/Timing Onset: Days (5) Context: Gradual Onset Timing: Continuous Quality: Burning, stabbing Location: Chest Worsened by: - (Coughing) Relieved by: - (Nothing) Associated Symptoms Associated Symptoms: Positive for Nasal Congestion, Headache, Sinus Pressure, Nausea, Shortness of Breath, Chest Pain and Nonproductive cough; Negative for Vomiting or Diarrhea Narrative Narrative: Patient presents with sore throat and rhinorrhea that has been getting worse over the last 5 days. Patient states it is gradually getting better. Patient states she has some pain in her chest. Patient describes it as burning and stabbing. Patient states it is worse with coughing. Patient states nothing makes it better. Patient admits to some shortness of breath. Patient denies any sputum production. Patient denies any fevers or chills. ROS ROS ED Constitutional Constitutional ED: Denies chills or fever(s) Eyes Eyes: Denies blurry vision or change in vision ENT ENT ED: Reports rhinorrhea and sore throat Cardiovascular Cardiovascular: Reports chest pain; Denies palpitations Respiratory/Chest Respiratory/Chest: Reports cough and dyspnea Gastrointestinal Gastrointestinal: Reports nausea; Denies vomiting Genitourinary Genitourinary ED: Denies dysuria or hematuria Musculoskeletal Musculoskeletal: Denies back pain or neck pain Integumentary Denies abscess or rash Neurologic Neurologic: Reports headache(s); Denies weakness Allergic/Immunologic Allergic/Immunologic ED: Denies mouth swelling or urticaria [facility] Medical History (Updated 08/01/24 @ 11:[address] Arvind Mchugh, DO) Wears partial dentures Restless legs Injury of back Migraine headache Fatty liver Low iron Easy bruising Gastric reflux Bilateral carpal tunnel syndrome COVID-19 Back pain Former smoker Sterilization Carpal tunnel syndrome Home Medications ?Medication ?Instructions ?Recorded ?Last Taken ?Type calcium carbonate (Tums) 200 mg PO BID 06/22/21 04/02/24 History cholecalciferol (vitamin D3) 50 50 mcg PO DAILY 06/22/21 04/02/24 History mcg (2,000 unit) capsule cyanocobalamin (vitamin B-12) 1,000 mcg PO DAILY 06/22/21 Unknown History 1,000 mcg capsule cyclobenzaprine 10 mg tablet 10 mg PO TID PRN Muscle Spasm #20 09/18/23 Unknown Rx TABLETS omeprazole 20 mg capsule,delayed 20 mg PO DAILY 04/03/24 04/03/24 History release prednisone 20 mg tablet 40 mg (2 x 20 mg) PO DAILY 6 days 04/03/24 Unknown Rx #12 tabs Allergy/AdvReac Type Severity Reaction Status Date / Time Penicillins Allergy Hives Verified 08/01/24 09:45 hydrocodone AdvReac CANT TAKE Verified 08/01/24 09:45 SINCE GASTRIC BYPASS prednisone AdvReac CANT TAKE Verified 08/01/24 09:45 SINCE GASTRIC BYPASS tramadol AdvReac Vomiting Verified 08/01/24 09:45 Surgical History (Updated 08/01/24 @ 10:[address] 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 EXAM Physical Exam Const Vital Signs: 08/01/24 09:43 Temperature 96.8 F L Temperature Source Temporal Pulse Rate 81 Respiratory Rate 16 Blood Pressure 136/94 H Blood Pressure Mean 108 Pulse Ox 100 Oxygen Delivery Method Room Air Positive well nourished and well developed General Appearance ED: well developed and NAD HEENT Reports moist mucous membranes normocephalic and atraumatic Neck supple and no JVD Resp normal respiratory effort Auscultation: rhonchi throughout Cardio Rate: regular rate Rhythm: regular rhythm GI non-tender and non-distended Palpation: soft Extremity normal to inspection and full ROM Neuro oriented x3, CN's II-XII intact bilaterally and no sensory deficits noted Sensorium / Orientation: alert Motor Exam: strength 5/5 throughout Psych mental status grossly normal MDM MDM MDM Narrative Medical decision making narrative: Differential diagnosis includes pneumonia, bronchitis, viral illness, reactive airway disease. Chest x-ray will be obtained to assess for pneumonia and bronchitis. COVID-19, influenza, and RSV PCR will be obtained to assess for viral illness. Lab Data Lab results narrative: COVID-19 PCR was reviewed and was negative. Influenza PCR was reviewed and was negative for influenza A and influenza B. RSV PCR was reviewed and was negative. Radiography Chest X-Ray - ED: 1 View, Read by ED Physician, Read by Radiologist and No Acute Disease Diagnostic Testing: Clinical Impression(s) from Imaging Studies Chest X-Ray 08/01/24 09:46 IMPRESSION: No acute cardiopulmonary process identified. Electronically Signed: Rachel Almanzar MD at 10:20 EDT , Portable 1 view chest x-ray was obtained. On my independent interpretation, lung odell are clear. There is normal cardiac silhouette. Bony thorax is normal. There is no acute process noted. Radiologist also interpreted the x-ray and agrees. Treatment and Re-Evaluation Narrative: Patient was given a DuoNeb aerosol here. Patient was advised of her findings. Patient was advised that this is most likely a viral upper respiratory infection. Patient was instructed to drink plenty of fluids. Patient was instructed to follow-up with her primary care physician in 5 to 7 days. Patient understood and was agreeable with the plan. All questions were answered. Discharge Plan Triage Chief Complaint: Cold Sx ED Provider: Arvind Mchugh Dx/Rx/DC Orders Clinical Impression: Viral URI, Cannabis use disorder Instructions: ED URI, Viral, No Abx (Adult) Prescriptions: No Action calcium carbonate [Tums] 200 mg calcium (500 mg) tablet,chewable 200 mg PO BID cyanocobalamin (vitamin B-12) 1,000 mcg capsule 1,000 mcg PO DAILY cholecalciferol (vitamin D3) 50 mcg (2,000 unit) capsule 50 mcg PO DAILY cyclobenzaprine 10 mg tablet 10 mg PO TID PRN (Reason: Muscle Spasm) Qty: 20 0RF omeprazole 20 mg capsule,delayed release(DR/EC) 20 mg PO DAILY prednisone 20 mg tablet 40 mg PO DAILY 6 Days Qty: 12 0RF Primary Care Provider: Cesia Wallis Referrals: Cesia Wallis PA [Primary Care Provider] - 5-7 Days Print Language: Congolese Disposition Disposition: Home, Self Care
[2024-08-01 10:28] VITALS: PULSE 78; RESP 16
[2024-08-01] MEDS: Ipratropium/Albuterol Sulfate 3 ML AMPUL.NEB INHALATION (10:31)
--- NOTE | 2024-08-01 11:35 | ED.RN ---
WENT IN TO DC PT AND SHE IS UPSET BECAUSE SHE REQUESTED TYLENOL TWICE AND DIDN;T GET IT. DOUBLE CHECKED TO SEE IF IT WAS ORDERED AND IT WAS NOT. TOLD PT I WOULD GO ASK FOR IT AND SHE STATED IT SHE HAS BEEN HERE SO NO SHE WOULD GET IT SINCE IT WAS OVER THE COUNTER
== END 2024-08-01 11:39 | disposition home or self-care (01) ==
PROVIDERS: Emergency Provider Emergency Medicine; PCP Physician Assistant; Visit Provider Emergency Medicine
DX: J06.9 Acute upper respiratory infection, unspecified (principal); R06.02 Shortness of breath; R11.0 Nausea; F12.90 Cannabis use, unspecified, uncomplicated; Z11.52 Encounter for screening for COVID-19; R07.9 Chest pain, unspecified; Z79.899 Other long term (current) drug therapy; Z87.891 Personal history of nicotine dependence
CPT/HCPCS: 71045; 87631; 94640; 99282

== ENCOUNTER → 2025-03-01 | Outpatient (CLI) | payer MEDICAID, SELFPAY ==
--- NOTE | 2025-03-01 14:25 | RAD_ITS ---
PROCEDURE: L/S SPINE COMP/W BENDING VIEWS 03/01/2025 REASON FOR EXAM: CHROONIC LOW BACK PAIN TECHNIQUE: 6 views of the lumbar spine COMPARISON: None available FINDINGS: Curvature: Preserved curvature of the lumbar spine. Other findings: Vertebral body heights are well preserved. The intervertebral disc heights are well preserved. No overlying soft tissue swelling. No dynamic instability on flexion-extension views. Other: RAD/L/S Spine Comp/w Bending Views IMPRESSION: *No acute fracture or traumatic malalignment. *No dynamic instability on flexion-extension views. Reading Location: [facility]
== END | disposition home or self-care (01) ==
LOC: RAD 14:07
PROVIDERS: PCP Physician Assistant; Referring Provider Physician Assistant; Visit Provider Physician Assistant
DX: M54.50 Low back pain, unspecified (principal); G89.29 Other chronic pain
CPT/HCPCS: 72114

== ENCOUNTER → 2025-04-05 | Outpatient (CLI) | payer MEDICAID, SELFPAY ==
[2025-04-07 21:07] LABS: Chlamydia By Nucleic Acid AMP Negative (Negative); Gonococcus By Nucleic Acid AMP Negative (Negative)
[2025-04-10 08:08] LABS: HPV APTIMA, High Risk Negative (Negative)
== END | disposition home or self-care (01) ==
LOC: LABSPEC 15:34
PROVIDERS: PCP Physician Assistant; Referring Provider Registered Nurse; Visit Provider Registered Nurse
DX: Z12.4 Encounter for screening for malignant neoplasm of cervix (principal); Z20.2 Contact with and (suspected) exposure to infections with a predominantly sexual mode of transmission
CPT/HCPCS: 87491; 87591; 87624; 88175; G0145

== ENCOUNTER → 2025-04-08 | Outpatient (CLI) | payer MEDICAID, SELFPAY ==
--- NOTE | 2025-04-08 14:57 | US_ITS ---
PROCEDURE: PELVIC W/ TRANSVAGINAL 04/08/2025 REASON FOR EXAM: POST COITAL BLEEDING TECHNIQUE: Transabdominal and transvaginal pelvic ultrasound. Color and spectral doppler analysis of the ovaries. COMPARISON: None. FINDINGS: Measurements: Uterus: 8.6 x 4.3 x 5.0 cm for volume of 95.0 mL Endometrial Thickness: 0.5 cm Right Ovary: 2.2 x 2.5 x 2.1 cm for volume of 6.0 mL Left Ovary: 2.4 x 1.5 x 1.5 cm for volume of 2.8 mL Uterus: Normal size, myometrial echotexture, and contour. There are nabothian cysts at the cervix, the largest measuring 1.1 cm. Endometrium: Trace fluid within the endometrial cavity. Right ovary: Normal size and echotexture. Left ovary: Normal size and echotexture. No large pelvic mass identified. Cul-de-sac: No free intraperitoneal fluid identified. Color Doppler: Normal color flow doppler signal at both ovaries. US/Pelvic w/ Transvaginal IMPRESSION: Unremarkable pelvic ultrasound. Reading Location: [id number]
== END | disposition home or self-care (01) ==
LOC: US 14:57
PROVIDERS: PCP Physician Assistant; Referring Provider Registered Nurse; Visit Provider Registered Nurse
DX: N39.0 Urinary tract infection, site not specified (principal)
CPT/HCPCS: 76830; 76856

== ENCOUNTER → 2025-04-09 | Outpatient (CLI) | payer OTHER, SELFPAY ==
--- NOTE | 2025-04-09 15:30 | MRI_ITS ---
PROCEDURE: SPINE LUMBAR (ROUTINE) 04/09/2025 REASON FOR EXAM: STRAIN OF MUSCLE,FASCIA AND TENDON OF LOWER BACK TECHNIQUE: Multiplanar and multisequence images were obtained without IV contrast administration. COMPARISON: Lumbar spine radiographs 03/01/2025 FINDINGS: Vertebral body heights and alignment are maintained. Marrow signal is unremarkable. Cord signal is unremarkable. Conus terminates at upper L1 level. Visualized pelvic contents are unremarkable. L1-2: No significant disc bulge. Minimal facet arthrosis. No neural foraminal or spinal canal narrowing. L2-3: No significant disc bulge. Minimal facet arthrosis. No neural foraminal or spinal canal narrowing. L3-4: Mild disc bulge with central disc protrusion. Mild marrow signal facet arthrosis. [id number] neural foraminal narrowing bilaterally. There is mild spinal canal narrowing measuring 9 mm in AP diameter. L4-5: Minimal disc bulge. Mild facet arthrosis. No significant neural foraminal or spinal canal narrowing. L5-S1: No disc bulge. Minimal facet arthrosis. No neural foraminal or spinal canal narrowing. MRI/Spine Lumbar (Routine) IMPRESSION: Degenerative disc disease at L3-4 resulting in [id number] neural foramina l narrowing bilaterally, and mild spinal canal narrowing. Reading Location: [facility]
== END | disposition home or self-care (01) ==
LOC: MRI 09-22 08:29
PROVIDERS: PCP Physician Assistant; Referring Provider Nurse Practitioner Family; Visit Provider Nurse Practitioner Family
DX: S39.012A Strain of muscle, fascia and tendon of lower back, initial encounter (principal)
CPT/HCPCS: 72148